=== PATIENT | female | born 1955 | race Caucasian/White ===

== ENCOUNTER 2019-12-25 07:32 | Outpatient (CLI) | payer BC, SELFPAY ==
--- NOTE | 2019-12-25 07:53 | MM_ITS ---
WS: [id number] DIAGNOSTIC BILATERAL DIGITAL MAMMOGRAM WITH CAD LEFT breast ultrasound, limited HISTORY: HX OF BREAST CA, LEFT breast has changed. COMPARISON: 07/17/2018, 04/22/2017, 10/19/2016. TECHNIQUE: Bilateral craniocaudad, mediolateral oblique, and mediolateral views are submitted. Spot c ompression LEFT CC and MLO. Computer aided detection utilized. Breast composition: The breasts are extremely dense, which lowers the sensitivity of mammography. Paulo y dense fibroglandular tissue. No apparent change in the parenchymal pattern over multiple prior year s. Biopsy clip upper outer quadrant of the LEFT breast. Surgical volume loss in the RIGHT breast. Mil d distortion of the soft tissues in the LEFT axilla. This area will be evaluated by ultrasound. There is an area of distortion upper outer quadrant of the LEFT breast which nearly resolves with addition al spot compression views. This area was also seen on 07/12/2015. No interval change. LEFT breast ultrasound. Ultrasound from 2:00 to 3:00 negative for any suspicious masses. Mildly complex cyst with through tra nsmission and the nipple. At 3:00 there is a hypoechoic mass measuring 4 x 4 mm. There is some throug h transmission. Margins are slightly lobulated. MM/[place] [id number] IMPRESSION: BI-RADS: 3-Probably Benign FOLLOW UP: 6 Month Follow-up 1. No discrete abnormality identified in the LEFT breast. As there are several minimally complex cysts and there is very dense fibroglandular tissue is limit ed evaluation short-term follow-up is recommended. Follow-up diagnostic LEFT ma mmogram and ultrasound in 6 months.
--- NOTE | 2019-12-25 08:03 | US_ITS ---
WS: [id number] DIAGNOSTIC BILATERAL DIGITAL MAMMOGRAM WITH CAD LEFT breast ultrasound, limited HISTORY: HX OF BREAST CA, LEFT breast has changed. COMPARISON: 07/17/2018, 04/22/2017, 10/19/2016. TECHNIQUE: Bilateral craniocaudad, mediolateral oblique, and mediolateral views are submitted. Spot c ompression LEFT CC and MLO. Computer aided detection utilized. Breast composition: The breasts are extremely dense, which lowers the sensitivity of mammography. Paulo y dense fibroglandular tissue. No apparent change in the parenchymal pattern over multiple prior year s. Biopsy clip upper outer quadrant of the LEFT breast. Surgical volume loss in the RIGHT breast. Mil d distortion of the soft tissues in the LEFT axilla. This area will be evaluated by ultrasound. There is an area of distortion upper outer quadrant of the LEFT breast which nearly resolves with addition al spot compression views. This area was also seen on 07/12/2015. No interval change. LEFT breast ultrasound. Ultrasound from 2:00 to 3:00 negative for any suspicious masses. Mildly complex cyst with through tra nsmission and the nipple. At 3:00 there is a hypoechoic mass measuring 4 x 4 mm. There is some throug h transmission. Margins are slightly lobulated. US/US breast LT limited* [id number] IMPRESSION: BI-RADS: 3-Probably Benign FOLLOW UP: 6 Month Follow-up 1. No discrete abnormality identified in the LEFT breast. As there are several minimally complex cysts and there is very dense fibroglandular tissue is limit ed evaluation short-term follow-up is recommended. Follow-up diagnostic LEFT ma mmogram and ultrasound in 6 months.
== END 2019-12-25 07:33 | disposition home or self-care (01) ==
LOC: RADSHAW 07:37
PROVIDERS: Family Provider Family Medicine; PCP Family Medicine; Visit Provider Family Medicine
DX: Z85.3 Personal history of malignant neoplasm of breast (principal)
CPT/HCPCS: 76642; 77066

== ENCOUNTER 2020-04-28 22:10 | Inpatient (IN) | payer BC, SELFPAY ==
[2020-04-28] VITALS (17 sets, daily range): BP systolic 101–147; BP diastolic 75–80; PULSE 56–149; RESP 18–27; TEMP 36.9; O2SAT 92–100; BMI 24.7
--- NOTE | 2020-04-28 22:36 | CTR_ITS ---
PROCEDURE INFORMATION: Exam: CT Abdomen And Pelvis With Contrast Exam date and time: 04/28/2020 11:43 PM Age: 64 years old Clinical indication: Abdominal pain; Generalized; Prior surgery; Surgery type: Hysterectomy, breast TECHNIQUE: Imaging protocol: Computed tomography of the abdomen and pelvis with intravenous contrast. Radiation optimization: All CT scans at this facility use at least one of these dose optimization techniques: automated exposure control; mA and/or kV adjustment per patient size (includes targeted exams where dose is matched to clinical indication); or iterative reconstruction. Contrast material: VISI; Contrast volume: 75 ml; Contrast route: 20G; COMPARISON: No relevant prior studies available. RADIATION DOSE METRICS: Total DLP: 676.51 mGy-cm FINDINGS: Lungs: Calcified granuloma the left lung base. Liver: No mass. Gallbladder and bile ducts: No calcified stones. No ductal dilation. Pancreas: Limited evaluation of the pancreas due to motion artifact. Spleen: No splenomegaly. Adrenals: No mass. Kidneys and ureters: Motion limited examination. 2.2 cm simple appearing left renal cyst, no follow up necessary. No hydronephrosis. Stomach and bowel: No obstruction. No mucosal thickening. No dilated bowel loops. Appendix: The appendix is not identified. Intraperitoneal space: No free air. No significant fluid collection. Vasculature: The main portal vein, superior mesenteric vein, and splenic vein appear patent. No aortic aneurysm. Lymph nodes: No enlarged lymph nodes. Bladder: [place] catheter is identified in the bladder. Reproductive: Status post hysterectomy. Bones/joints: Diffuse sclerotic bony lesions.Bones are osteopenic. Chronic appearing L3 vertebral body fracture. Soft tissues: Unremarkable. CT/CT abdomen pelvis w con* [id number] IMPRESSION: 1. Diffuse sclerotic bony lesions, correlate with known history of metastatic disease. 2. No acute intra-abdominal abnormality allowing for motion artifact. COMMENTS: Consistent with the [employer]'s Incidental Findings Committee white paper (J Am Lidia Radiol 2018): Any incidental renal lesion less than 1.0 cm or classified as too small to characterize, or any incidental cystic renal lesion characterized as simple-appearing, is likely benign. No follow-up imaging is recommended for these lesions per consensus recommendations based on imaging criteria. Radiation Dose CTDIVOL = (mGy): DLP = 676.51 (mGy-cm)
--- NOTE | 2020-04-28 22:36 | CTR_ITS ---
PROCEDURE INFORMATION: Exam: CT Head Without Contrast Exam date and time: 04/28/2020 11:48 PM Age: 64 years old Clinical indication: Altered mental status/memory loss; Confusion or disorientation TECHNIQUE: Imaging protocol: Computed tomography of the head without contrast. Radiation optimization: All CT scans at this facility use at least one of these dose optimization techniques: automated exposure control; mA and/or kV adjustment per patient size (includes targeted exams where dose is matched to clinical indication); or iterative reconstruction. COMPARISON: No relevant prior studies available. RADIATION DOSE METRICS: Total DLP: 868.43 mGy-cm FINDINGS: Brain: [place]-white matter differentiation is preserved. No edema, mass effect or midline shift. No acute intracranial hemorrhage.Periventricular and deep white matter hypodensities compatible with chronic microvascular ischemic changes. Ventricles: No ventriculomegaly. Bones/joints: 1.6 x 1.5 cm left skull base mass, see CTA head/neck report follow shortly. No acute fracture. Sinuses: No acute sinusitis. Mastoid air cells: No mastoid effusion. Soft tissues: Unremarkable. CT/CT head wo con* [id number] IMPRESSION: No acute intracranial abnormality. 1.6 x 1.5 cm left skull base mass, see CTA head/neck report follow shortly. Radiation Dose CTDIVOL = (mGy): DLP = 868.43 (mGy-cm)
--- NOTE | 2020-04-28 22:36 | XR_ITS ---
WS: [id number] PORTABLE CHEST HISTORY: Altered mental status COMPARISON: None available. Lungs are clear and well expanded. No pleural effusion or pneumothorax. Cardiac size: Normal. Mediastinum/Aorta: Normal mediastinum. No osseous abnormality seen. XR/XR chest 1V portable [id number] IMPRESSION: Unremarkable portable chest.
--- NOTE | 2020-04-28 22:38 | ECG_ITS ---
Measurements Intervals [place] Rate: 65 P: 41 NM: 142 QRS: 29 QRSD: 76 T: 114 QT: 438 QTc: 457 Atrial fibrillation with controlled medical response rate. Specific T wave changes Electronically Signed On 04-30-2020 14:56:41 CDT by Aaron Pineda M.D. [email or web address]
[2020-04-28] MEDS: sodium chloride 0.9% 1,000 ML 100 ML IV (22:44)
[2020-04-28 22:55] LABS: Arterial Blood Gas Hematocrit 33.7 % (37-47); Blood Gas Sample Site Brachial, right; Blood Gas Sample Type Arterial; HCO3 ABG 24.1 mmol/L (22-26)
[2020-04-28 22:56] LABS: Basophils # 0.1 10^3/uL (0.0-0.1); Basophils % 0.7 %; Eosinophils # 0.1 10^3/uL (0.0-0.8); Eosinophils % 1.3 %; Hematocrit 35.2 % (37.0-47.0); Hemoglobin 11.2 g/dL (11.5-15.3); Lymphocytes # 1.7 10^3/uL (0.8-4.8); Lymphocytes % 23.1 %; Mean Corpuscular HGB Conc 31.8 g/dL (30.0-36.0); Mean Corpuscular Hemoglobin 28.8 pg (28.0-34.0); Mean Corpuscular Volume 90.5 fL (81-99); Mean Platelet Volume 10.1 fL (7.4-10.4); Monocytes # 0.7 10^3/uL (0.2-0.9); Monocytes % 8.9 %; Neutrophils % 65.9 %; Nucleated Red Blood Cells % 0 %; Platelet Count 414 10^3/cmm (130-400); Red Blood Count 3.89 10^6/uL (4.1-5.3); Red Cell Distribution Width 15.4 % (12.1-15.1); White Blood Count 7.5 10^3/uL (4.0-10.0)
[2020-04-28 22:57] LABS: ABG PH Result 7.63 (7.35-7.45)
[2020-04-28 22:58] LABS: Ketone (Acetest) Serum Negative (Negative)
[2020-04-28 23:01] LABS: INR 0.95 (0.8-1.2)
[2020-04-28 23:05] LABS: Lactic Sepsis W/Reflex 1.5 mmol/L (0.5-2.2)
[2020-04-28 23:08] LABS: Troponin(5th) Baseline 8 ng/L (0-10)
[2020-04-28 23:10] LABS: Glucose Point of Care 124 mg/dL (70-110)
--- NOTE | 2020-04-28 23:12 | ED_ITS ---
HPI - Altered Mental Status General: Chief Complaint: Altered Mental Status Stated Complaint: ams Time Seen by Provider: 04/28/20 22:28 Source: family History of Present Illness: HPI narrative: Silva is a 64-year-old female who comes in with a severely altered mental status. All history is obtained from the patient's daughter and from Dr. Pickard by phone. The patient is unable to provide any meaningful information. Family, the Pt.'s daughter in law relates the patient had a cholesterol medication changed approximately 2 weeks ago and since that time the patient has been intermittently confused. She has also been complaining of intermittent headaches and neck pain. She has had no fever, chills, or other complaints other than a headache. Today the patient saw Dr. Pickard in his office and he could not find where a cholesterol medication change had been made but had the patient stop all her medications due to this change in her mental status to see if the medication had caused this and none of the medications were essential at that time. He is unaware of anything else that may have caused the symptoms intermittent confusion. Family states tonight the patient was normally believed between 6 and 630 but then after that she became much more confused especially at 8 PM. Patient is at this time not interacting with her environment and has vomited several times. Review of Systems General: Reports: ROS unobtainable due to mental status PFSH ED PFSH: Medical History Anxiety with depression History of invasive ductal carcinoma of breast Right breast infiltrating ductal carcinoma. 02/2001 Primary tumor 1 cm, lumpectomy, axillary node dissection; ER/NE (+),HER2/iris (-). 2000 chemotherapy, followed by radiation, Tamoxifen ?5 years; Femara until 2007. Hyperlipidemia Hypothyroidism (acquired) Prolapse of vaginal wall with midline cystocele Surgical History H/O breast biopsy H/O dilation and curettage 1969's for persistent spotting. H/O lumpectomy (~02/19/01) --1983 right breast --02/19/2001 Right side; Carcinoma Lymph nodes taken H/O thumb surgery (~2006) Repair of right thumb trigger finger in May and left thumb trigger finger in June 2007. H/O tubal ligation (~11/15/93) H/O vaginal surgery (~08/07/11) preoperative diagnosis was a cystocele-grade 2. On examination under anesthesia there was a 2 x 2 centimeter mass noted in the vaginal cuff and as a result cystocele repair was not done and wide local excision of this vaginal mass was performed by Dr. Santamaria assisted by Dr. Dr. Torrez. -Pathology of this showed granulation tissue. H/O: hysterectomy (~02/22/11) total vaginal hysterectomy with bilateral salpingo-oophorectomy and ut erosacral ligament was distention, cystoscopy done for uterovaginal prolapse and cystocele. Surgery was performed by Dr. Santamaria and Dr. Dr. Torrez. Once vault suspension was performed cystocele was reduced and no cystocele repair was done. Pathology was benign with atrophic ovaries. Family History Father Heart disease Diabetes Hyperlipidemia Hypertension Family/Other Heart disease Paternal aunt x2 Paternal uncle x 1 Grandfather Heart disease Paternal grandfather Mother Hyperlipidemia Family history of thyroid problem Stroke Grandmother Cancer, Onset Age: 80 MGM- BREAST CA Social History Smoking and tobacco status: never smoked Alcohol intake: never Substance/Drug Use: never Household members: family Housing: House Physical Exam Const: EXAM LIMITATIONS: altered mental status GENERAL APPEARANCE: in distress, lethargic and ill appearing ORIENTATION/CONSCIOUSNESS: Yes lethargic HENMT: COMMON NORMALS: normocephalic, atraumatic, EAC's normal and Normal external nose present HEAD & SCALP: normocephalic and atraumatic FACE & SINUS: normal facial exam NOSE: Normal external nose present and Normal nares present EXTERNAL AUDITORY CANAL: EAC's normal MOUTH: Normal oral and palatal mucosa present Eye: COMMON NORMALS: Equal, round and reactive pupils present, EOMs intact bilaterally and conjunctivae normal CONJUNCTIVA: Yes conjunctivae normal PUPIL: Yes Equal, round and reactive pupils present Neck/C-Spine: COMMON NORMALS: full ROM, no lymphadenopathy, no meningeal signs and no JVD Lymph: LYMPHATIC: no lymphadenopathy noted and no lymphedema noted Chest: COMMONS NORMALS: normal inspection of the chest and normal palpation of entire chest wall Resp: COMMON NORMALS: clear to auscultation bilaterally EFFORT & INSPECTION: Yes labored and Yes grunting AUSCULTATION: clear to auscultation bilaterally, no rales, no rhonchi and no wheezes Cardio: COMMON NORMALS: no JVD, regular rate, regular rhythm, S1 normal heart sound present and S2 normal heart sound present RATE: regular rate RHYTHM: regular rhythm HEART SOUNDS: S1 normal heart sound present and S2 normal heart sound present GI: COMMON NORMALS: Soft to palpation, non-tender, No hepatosplenomegaly present and no masses PALPATION: Yes Soft to palpation, No Tenderness to palpation present (GI) (mild diffusly) and Yes No hepatosplenomegaly present Back/Pelvis: COMMON NORMALS: thoracic and lumbar spine normal to inspection Extremity: COMMON NORMALS: normal to inspection, full ROM, capillary refill normal, no joint enlargement, no clubbing, cyanosis or edema, no calf tenderness and no pedal edema Neuro: MITZI COMA SCALE: document GCS findings [place] coma scale eye opening: Spontaneous Mitzi coma scale verbal response: Sounds Mitzi coma scale motor response: Localising Mitzi coma scale total score: 11 SENSORIUM/ORIENTATION: Yes lethargic MENINGEAL SIGNS: Yes no meningeal signs, No nuccal rigidity, No Brudzinski's sign present and No Kernig's sign presnet MOTOR EXAM: no tremor noted, Motor fasciculations not present, Normal motor muscle tone present throughout and Motor abnormalities not present Course Vital Signs: Vital signs: Vital Signs Temperature 98.5 F 04/28/20 22:17 Pulse Rate 95 04/28/20 23:30 Respiratory Rate 16 04/29/20 05:10 Blood Pressure 142/82 04/29/20 06:00 Pulse Oximetry 99 04/29/20 06:00 MDM - Altered Mental Status MDM Narrative: Medical decision making narrative: Mrs. Aj is a 64-year-old female who comes in with headache and neck pain for approximately 2 weeks but then abrupt onset mental status change today. There was felt initially that her symptoms were likely due to change in medication at least as far as her intermittent confusion. The patient did not present in a window minimal to TPA. An NIH stroke scale was almost impossible secondary to her significant confusion. The patient was very difficult to evaluate secondary to her encephalopathy. Ultimately after proceeding cautiously with sedation as we did not want to obtunded her or cause a airway or ventilation issue we were able to get a CT scan after 3 mg of Ativan and 5 mg of Haldol. It was on the second attempt we were able to get the scans performed. Please see the results of all the scans but I did discuss these with the radiologist who did state there was no evidence of brain parenchymal disease but diffuse osseous disease. I reviewed the case in full with Drs. Galeana and Suraj. They agree with the idea of giving Decadron 10 mg empirically and then 4 mg every 6 hours for 24 hours. 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 When discussed with the hospitalist Dr. Ortiz he stated he would initiate this therapy on her admission orders. Patient had no fever or white count but we did elect to empirically cover her for meningitis. Dr. Stockton resume these orders on the floor but I initiated doses here in the ER. I did run this past neurology who felt this was the safe and appropriate way. We did discuss possibly performing the LP done here but as the patient was so encephalopathic and could not cooperate or be redirected it was not felt to be safe to be done down here in the ER without the addition of anesthesia. Dr. Ortiz felt it would be safer to have interventional radiology perform the LP later today with anesthesia available as needed for sedation. Family was made aware of the patient's condition and findings tonight they are going to discuss together this morning how they would like to proceed from here. Dr. Galeana was made aware and he does agree with this treatment course. Further care will be dictated on the inpa ient side. Lab Data: Attestation: I reviewed the patient's lab results. Labs: Lab Results 04/28/20 04/28/20 04/28/20 Range/Units 22:25 22:25 22:25 WBC 7.5 (4.0-10.0) 10^3/ uL RBC 3.89 L (4.1-5.3) 10^6/u L Hgb 11.2 L (11.5-15.3) g/dL Hct 35.2 L (37.0-47.0) % MCV 90.5 (81-99) fL MCH 28.8 (28.0-34.0) pg MCHC 31.8 (30.0-36.0) g/dL RDW 15.4 H (12.1-15.1) % Plt Count 414 H (130-400) 10^3/c mm MPV 10.1 (7.4-10.4) fL Neut % (Auto) 65.9 % Lymph % (Auto) 23.1 % [place] % (Auto) 8.9 % Eos % (Auto) 1.3 % Baso % (Auto) 0.7 % Neut # (Auto) 5.0 (1.8-7.7) 10^3/u L Lymph # (Auto) 1.7 (0.8-4.8) 10^3/u L [place] # (Auto) 0.7 (0.2-0.9) 10^3/u L Eos # (Auto) 0.1 (0.0-0.8) 10^3/u L Baso # (Auto) 0.1 (0.0-0.1) 10^3/u L Nucleated RBC % (a uto) 0 % Nucleated RBCs # 0.0 /100WBC PT 13.00 (10.5-13.3) SECO NDS INR 0.95 (0.8-1.2) Specimen Type Sample Site ABG pH (7.35-7.45) ABG pCO2 (35-45) mmHg ABG pO2 (80.0-100.0) mmH g ABG HCO3 (22-26) mmol/L ABG Base Excess (-2.0-2.0) mmol/ L Fan Test Hematocrit (37-47) % O2 Delivery Device FiO2 % [employer] ID Sodium 142 (136-145) mmol/L Potassium 3.8 (3.5-5.1) mmol/L Chloride 103 (98-107) mmol/L Carbon Dioxide 25 (22-29) mmol/L Anion Gap 17.8 (5-19) BUN 10 (8-23) mg/dL Creatinine 0.5 (0.5-0.9) mg/dL GFR Calculation 124.2 (90-130) mL/min Glucose 127 H (65-115) mg/dL POC Glucose (70-110) mg/dL Calculated Osmolal ity 292 (285-295) mOsm/k g Lactic Acid (0.5-2.2) mmol/L Calcium 10.3 (8.5-10.5) mg/dL Magnesium 2.2 (1.7-2.3) mg/dL Total Bilirubin 0.3 (0.15-1.2) mg/dL AST 29 (0-32) U/L ALT 16 (0-33) U/L Alkaline Phosphata se 77 (35-105) IU/L Creatine Kinase 58 (26-192) U/L Troponin I 6 Hour (0-10) ng/L Troponin I Hi Sens Del (0-12) ng/L Troponin T Baselin e (0-10) ng/L Troponin T 120 Min [place] (0-10) ng/L Delta Troponin T (0-10) ABS# Total Protein 6.5 L (6.6-8.7) g/dL Albumin 4.4 (3.5-5.2) g/dL Globulin 2.1 (1.3-4.6) g/dL Lipase 67 H (13-60) U/L TSH 2.51 (0.27-4.20) uIU/ mL Urine Color (Yellow) Urine Appearance (CLEAR) Urine pH (5-7) Ur Specific Gravit y (1.005-1.030) Urine Protein (Negative) Urine Glucose (UA) (Normal) Urine Ketones (Negative) Urine Blood (Negative) Urine Nitrate (Negative) Urine Bilirubin (NEGATIVE) Prot Sulfosalicyli c Acd (Negative) Urine Urobilinogen (Negative) mg/dL Ur Leukocyte Randa ase (Negative) Urine RBC (0-2) /hpf Urine WBC (0-5) /hpf Ur Squamous Epith Cells (0-5) Urine Bacteria (NONE) Urine Opiates Scre en (Negative) ng/mL Ur Barbiturates Sc reen (Negative) ng/mL Ur Phencyclidine S crn (Negative) ng/mL Ur Amphetamines Sc reen (Negative) ng/mL U Benzodiazepines Scrn (Negative) ng/mL Urine Cocaine Scre en (Negative) ng/mL U Marijuana (THC) Screen (Negative) ng/mL Ethyl Alcohol < 10 (0-10) mg/dL Serum Ketones (Negative) 04/28/20 04/28/20 04/28/20 Range/Units 22:25 22:25 22:25 WBC (4.0-10.0) 10^3/ uL RBC (4.1-5.3) 10^6/u L Hgb (11.5-15.3) g/dL Hct (37.0-47.0) % MCV (81-99) fL MCH (28.0-34.0) pg MCHC (30.0-36.0) g/dL RDW (12.1-15.1) % Plt Count (130-400) 10^3/c mm MPV (7.4-10.4) fL Neut % (Auto) % Lymph % (Auto) % [place] % (Auto) % Eos % (Auto) % Baso % (Auto) % Neut # (Auto) (1.8-7.7) 10^3/u L Lymph # (Auto) (0.8-4.8) 10^3/u L [place] # (Auto) (0.2-0.9) 10^3/u L Eos # (Auto) (0.0-0.8) 10^3/u L Baso # (Auto) (0.0-0.1) 10^3/u L Nucleated RBC % (a uto) % Nucleated RBCs # /100WBC PT (10.5-13.3) SECO NDS INR (0.8-1.2) Specimen Type Sample Site ABG pH (7.35-7.45) ABG pCO2 (35-45) mmHg ABG pO2 (80.0-100.0) mmH g ABG HCO3 (22-26) mmol/L ABG Base Excess (-2.0-2.0) mmol/ L Fan Test Hematocrit (37-47) % O2 Delivery Device FiO2 % [employer] ID Sodium (136-145) mmol/L Potassium (3.5-5.1) mmol/L Chloride (98-107) mmol/L Carbon Dioxide (22-29) mmol/L Anion Gap (5-19) BUN (8-23) mg/dL Creatinine (0.5-0.9) mg/dL GFR Calculation (90-130) mL/min Glucose (65-115) mg/dL POC Glucose (70-110) mg/dL Calculated Osmolal ity (285-295) mOsm/k g Lactic Acid 1.5 (0.5-2.2) mmol/L Calcium (8.5-10.5) mg/dL Magnesium (1.7-2.3) mg/dL Total Bilirubin (0.15-1.2) mg/dL AST (0-32) U/L ALT (0-33) U/L Alkaline Phosphata se (35-105) IU/L Creatine Kinase (26-192) U/L Troponin I 6 Hour (0-10) ng/L Troponin I Hi Sens Del (0-12) ng/L Troponin T Baselin e 8 (0-10) ng/L Troponin T 120 Min [place] (0-10) ng/L Delta Troponin T (0-10) ABS# Total Protein (6.6-8.7) g/dL Albumin (3.5-5.2) g/dL Globulin (1.3-4.6) g/dL Lipase (13-60) U/L TSH (0.27-4.20) uIU/ mL Urine Color (Yellow) Urine Appearance (CLEAR) Urine pH (5-7) Ur Specific Gravit y (1.005-1.030) Urine Protein (Negative) Urine Glucose (UA) (Normal) Urine Ketones (Negative) Urine Blood (Negative) Urine Nitrate (Negative) Urine Bilirubin (NEGATIVE) Prot Sulfosalicyli c Acd (Negative) Urine Urobilinogen (Negative) mg/dL Ur Leukocyte Randa ase (Negative) Urine RBC (0-2) /hpf Urine WBC (0-5) /hpf Ur Squamous Epith Cells (0-5) Urine Bacteria (NONE) Urine Opiates Scre en (Negative) ng/mL Ur Barbiturates Sc reen (Negative) ng/mL Ur Phencyclidine S crn (Negative) ng/mL Ur Amphetamines Sc reen (Negative) ng/mL U Benzodiazepines Scrn (Negative) ng/mL Urine Cocaine Scre en (Negative) ng/mL U Marijuana (THC) Screen (Negative) ng/mL Ethyl Alcohol (0-10) mg/dL Serum Ketones Negative (Negative) 04/28/20 04/28/20 04/28/20 Range/Units 22:40 22:40 22:50 WBC (4.0-10.0) 10^3/ uL RBC (4.1-5.3) 10^6/u L Hgb (11.5-15.3) g/dL Hct (37.0-47.0) % MCV (81-99) fL MCH (28.0-34.0) pg MCHC (30.0-36.0) g/dL RDW (12.1-15.1) % Plt Count (130-400) 10^3/c mm MPV (7.4-10.4) fL Neut % (Auto) % Lymph % (Auto) % [place] % (Auto) % Eos % (Auto) % Baso % (Auto) % Neut # (Auto) (1.8-7.7) 10^3/u L Lymph # (Auto) (0.8-4.8) 10^3/u L [place] # (Auto) (0.2-0.9) 10^3/u L Eos # (Auto) (0.0-0.8) 10^3/u L Baso # (Auto) (0.0-0.1) 10^3/u L Nucleated RBC % (a uto) % Nucleated RBCs # /100WBC PT (10.5-13.3) SECO NDS INR (0.8-1.2) Specimen Type Arterial Sample Site Brachial, right ABG pH 7.63 H* (7.35-7.45) ABG pCO2 23.0 L (35-45) mmHg ABG pO2 103.0 H (80.0-100.0) mmH g ABG HCO3 24.1 (22-26) mmol/L ABG Base Excess 4.0 H (-2.0-2.0) mmol/ L Fan Test N/a Hematocrit 33.7 L (37-47) % O2 Delivery Device None FiO2 21.0 % [employer] ID [email or web address] Sodium (136-145) mmol/L Potassium (3.5-5.1) mmol/L Chloride (98-107) mmol/L Carbon Dioxide (22-29) mmol/L Anion Gap (5-19) BUN (8-23) mg/dL Creatinine (0.5-0.9) mg/dL GFR Calculation (90-130) mL/min Glucose (65-115) mg/dL POC Glucose (70-110) mg/dL Calculated Osmolal ity (285-295) mOsm/k g Lactic Acid (0.5-2.2) mmol/L Calcium (8.5-10.5) mg/dL Magnesium (1.7-2.3) mg/dL Total Bilirubin (0.15-1.2) mg/dL AST (0-32) U/L ALT (0-33) U/L Alkaline Phosphata se (35-105) IU/L Creatine Kinase (26-192) U/L Troponin I 6 Hour (0-10) ng/L Troponin I Hi Sens Del (0-12) ng/L Troponin T Baselin e (0-10) ng/L Troponin T 120 Min [place] (0-10) ng/L Delta Troponin T (0-10) ABS# Total Protein (6.6-8.7) g/dL Albumin (3.5-5.2) g/dL Globulin (1.3-4.6) g/dL Lipase (13-60) U/L TSH (0.27-4.20) uIU/ mL Urine Color Yellow (Yellow) Urine Appearance Clear (CLEAR) Urine pH 8 H (5-7) Ur Specific Gravit y 1.010 (1.005-1.030) Urine Protein Neg (Negative) Urine Glucose (UA) Norm (Normal) Urine Ketones Negative (Negative) Urine Blood Neg (Negative) Urine Nitrate Negative (Negative) Urine Bilirubin Neg (NEGATIVE) Prot Sulfosalicyli c Acd Negative (Negative) Urine Urobilinogen Norm (Negative) mg/dL Ur Leukocyte Randa ase Negative (Negative) Urine RBC Rare (0-2) /hpf Urine WBC Rare (0-5) /hpf Ur Squamous Epith Cells Rare (0-5) Urine Bacteria Trace (NONE) Urine Opiates Scre en Negative (Negative) ng/mL Ur Barbiturates Sc reen Negative (Negative) ng/mL Ur Phencyclidine S crn Negative (Negative) ng/mL Ur Amphetamines Sc reen Negative (Negative) ng/mL U Benzodiazepines Scrn Negative (Negative) ng/mL Urine Cocaine Scre en Negative (Negative) ng/mL U Marijuana (THC) Screen Negative (Negative) ng/mL Ethyl Alcohol (0-10) mg/dL Serum Ketones (Negative) 04/28/20 04/29/20 04/29/20 Range/Units 23:07 00:45 04:15 WBC (4.0-10.0) 10^3/ uL RBC (4.1-5.3) 10^6/u L Hgb (11.5-15.3) g/dL Hct (37.0-47.0) % MCV (81-99) fL MCH (28.0-34.0) pg MCHC (30.0-36.0) g/dL RDW (12.1-15.1) % Plt Count (130-400) 10^3/c mm MPV (7.4-10.4) fL Neut % (Auto) % Lymph % (Auto) % [place] % (Auto) % Eos % (Auto) % Baso % (Auto) % Neut # (Auto) (1.8-7.7) 10^3/u L Lymph # (Auto) (0.8-4.8) 10^3/u L [place] # (Auto) (0.2-0.9) 10^3/u L Eos # (Auto) (0.0-0.8) 10^3/u L Baso # (Auto) (0.0-0.1) 10^3/u L Nucleated RBC % (a uto) % Nucleated RBCs # /100WBC PT (10.5-13.3) SECO NDS INR (0.8-1.2) Specimen Type Sample Site ABG pH (7.35-7.45) ABG pCO2 (35-45) mmHg ABG pO2 (80.0-100.0) mmH g ABG HCO3 (22-26) mmol/L ABG Base Excess (-2.0-2.0) mmol/ L Fan Test Hematocrit (37-47) % O2 Delivery Device FiO2 % [employer] ID Sodium (136-145) mmol/L Potassium (3.5-5.1) mmol/L Chloride (98-107) mmol/L Carbon Dioxide (22-29) mmol/L Anion Gap (5-19) BUN (8-23) mg/dL Creatinine (0.5-0.9) mg/dL GFR Calculation (90-130) mL/min Glucose (65-115) mg/dL POC Glucose 124 (70-110) mg/dL Calculated Osmolal ity (285-295) mOsm/k g Lactic Acid (0.5-2.2) mmol/L Calcium (8.5-10.5) mg/dL Magnesium (1.7-2.3) mg/dL Total Bilirubin (0.15-1.2) mg/dL AST (0-32) U/L ALT (0-33) U/L Alkaline Phosphata se (35-105) IU/L Creatine Kinase (26-192) U/L Troponin I 6 Hour 11.63 H (0-10) ng/L Troponin I Hi Sens Del 3.63 (0-12) ng/L Troponin T Baselin e (0-10) ng/L Troponin T 120 Min [place] 8.23 (0-10) ng/L Delta Troponin T 0.23 (0-10) ABS# Total Protein (6.6-8.7) g/dL Albumin (3.5-5.2) g/dL Globulin (1.3-4.6) g/dL Lipase (13-60) U/L TSH (0.27-4.20) uIU/ mL Urine Color (Yellow) Urine Appearance (CLEAR) Urine pH (5-7) Ur Specific Gravit y (1.005-1.030) Urine Protein (Negative) Urine Glucose (UA) (Normal) Urine Ketones (Negative) Urine Blood (Negative) Urine Nitrate (Negative) Urine Bilirubin (NEGATIVE) Prot Sulfosalicyli c Acd (Negative) Urine Urobilinogen (Negative) mg/dL Ur Leukocyte Randa ase (Negative) Urine RBC (0-2) /hpf Urine WBC (0-5) /hpf Ur Squamous Epith Cells (0-5) Urine Bacteria (NONE) Urine Opiates Scre en (Negative) ng/mL Ur Barbiturates Sc reen (Negative) ng/mL Ur Phencyclidine S crn (Negative) ng/mL Ur Amphetamines Sc reen (Negative) ng/mL U Benzodiazepines Scrn (Negative) ng/mL Urine Cocaine Scre en (Negative) ng/mL U Marijuana (THC) Screen (Negative) ng/mL Ethyl Alcohol (0-10) mg/dL Serum Ketones (Negative) Imaging Data^: CT Head: Radiologist's impression: [address] [address] [address] Scan Report Signed Patient: Silva Aj Unit #: [id number] : 1955 Age/Sex: 64 / F ADM Date: 10/07 Loc: ER Room/Bed: Attending Dr: Ordering Provider/Ordering MD: Elvia Farr DO Date of Service: 04/28/20 Procedure(s): CT head wo con* [id number] Accession Number(s): [id number] Report Number: [id number] PROCEDURE INFORMATION: Exam: CT Head Without Contrast Exam date and time: 04/28/2020 11:48 PM Age: 64 years old Clinical indication: Altered mental status/memory loss; Confusion or disorientation TECHNIQUE: Imaging protocol: Computed tomography of the head without contrast. Radiation optimization: All CT scans at this facility use at least one of these dose optimization techniques: automated exposure control; mA and/or kV adjustment per patient size (includes targeted exams where dose is matched to clinical indication); or iterative reconstruction. COMPARISON: No relevant prior studies available. RADIATION DOSE METRICS: Total DLP: 868.43 mGy-cm FINDINGS: Brain: [place]-white matter differentiation is preserved. No edema, mass effect or midline shift. No acute intracranial hemorrhage.Periventricular and deep white matter hypodensities compatible with chronic microvascular ischemic changes. Ventricles: No ventriculomegaly. Bones/joints: 1.6 x 1.5 cm left skull base mass, see CTA head/neck report follow shortly. No acute fracture. Sinuses: No acute sinusitis. Mastoid air cells: No mastoid effusion. Soft tissues: Unremarkable. CT/CT head wo con* [id number] IMPRESSION: No acute intracranial abnormality. 1.6 x 1.5 cm left skull base mass, see CTA head/neck report follow shortly. Radiation Dose CTDIVOL = (mGy): DLP = 868.43 (mGy-cm) Dictated By: Harpreet Fernandez MD Signed By: Harpreet Fernandez MD Signed Date/Time: 04/29/20326 DD/ 4 CT Abd/Pel: Radiologist's impression: [address] [address] [address] Scan Report Signed Patient: Silva Aj Unit #: [id number] : 1955 Age/Sex: 64 / F ADM Date: 04/28/20 Loc: ER Room/Bed: Attending Dr: Ordering Provider/Ordering MD: Elvia Farr DO Date of Service: 04/28/20 Procedure(s): CT abdomen pelvis w con* [id number] Accession Number(s): [id number] Report Number: [id number] PROCEDURE INFORMATION: Exam: CT Abdomen And Pelvis With Contrast Exam date and time: 04/28/2020 11:43 PM Age: 64 years old Clinical indication: Abdominal pain; Generalized; Prior surgery; Surgery type: Hysterectomy, breast TECHNIQUE: Imaging protocol: Computed tomography of the abdomen and pelvis with intravenous contrast. Radiation optimization: All CT scans at this facility use at least one of these dose optimization techniques: automated exposure control; mA and/or kV adjustment per patient size (includes targeted exams where dose is matched to clinical indication); or iterative reconstruction. Contrast material: VISI; Contrast volume: 75 ml; Contrast route: 20G; COMPARISON: No relevant prior studies available. RADIATION DOSE METRICS: Total DLP: 676.51 mGy-cm FINDINGS: Lungs: Calcified granuloma the left lung base. Liver: No mass. Gallbladder and bile ducts: No calcified stones. No ductal dilation. Pancreas: Limited evaluation of the pancreas due to motion artifact. Spleen: No splenomegaly. Adrenals: No mass. Kidneys and ureters: Motion limited examination. 2.2 cm simple appearing left renal cyst, no follow up necessary. No hydronephrosis. Stomach and bowel: No obstruction. No mucosal thickening. No dilated bowel loops. Appendix: The appendix is not identified. Intraperitoneal space: No free air. No significant fluid collection. Vasculature: The main portal vein, superior mesenteric vein, and splenic vein appear patent. No aortic aneurysm. Lymph nodes: No enlarged lymph nodes. Bladder: [place]o catheter is identified in the bladder. Reproductive: Status post hysterectomy. Bones/joints: Diffuse sclerotic bony lesions.Bones are osteopenic. Chronic appearing L3 vertebral body fracture. Soft tissues: Unremarkable. CT/CT abdomen pelvis w con* [id number] IMPRESSION: 1. Diffuse sclerotic bony lesions, correlate with known history of metastatic disease. 2. No acute intra-abdominal abnormality allowing for motion artifact. COMMENTS: Consistent with the [employer]'s Incidental Findings Committee white paper (J Am Lidia Radiol 2018): Any incidental renal lesion less than 1.0 cm or classified as too small to characterize, or any incidental cystic renal lesion characterized as simple-appearing, is likely benign. No follow-up imaging is recommended for these lesions per consensus recommendations based on imaging criteria. Radiation Dose CTDIVOL = (mGy): DLP = 676.51 (mGy-cm) Dictated By: Harpreet Fernandez MD Signed By: Harpreet Fernandez MD Signed Date/Time: 04/29/20341 DD/ 0 CT Cervical Spine: Radiologist's impression: [address] [address] [address] Scan Report Signed Patient: Silva Aj Unit #: [id number] : 1955 Age/Sex: 64 / F ADM Date: 04/18 12/07 Loc: ER Room/Bed: Attending Dr: Ordering Provider/Ordering MD: Elvia Farr DO Date of Service: 04/29/20 Procedure(s): CT cervical spin wo con* [id number] Accession Number(s): [id number] Report Number: [id number] PROCEDURE INFORMATION: Exam: CT Cervical Spine Without Contrast Exam date and time: 04/29/2020 12:20 AM Age: 64 years old Clinical indication: Neck pain TECHNIQUE: Imaging protocol: Computed tomography images of the cervical spine without contrast. Radiation optimization: All CT scans at this facility use at least one of these dose optimization techniques: automated exposure control; mA and/or kV adjustment per patient size (includes targeted exams where dose is matched to clinical indication); or iterative reconstruction. COMPARISON: No relevant prior studies available. RADIATION DOSE METRICS: Total DLP: 812.48 mGy-cm FINDINGS: Vertebrae: Examination is limited by motion artifact. Otherwise no acute cervical fracture. Multiple sclerotic lesions noted in several vertebral bodies, correlate with known history of malignancy. Straightening of the normal cervical lordosis which can be seen with spasm. Discs/Spinal canal/Neural foramina: Multilevel degenerative changes including disc space narrowing, endplate spurring and facet hypertrophy. Mild anterolisthesis of C4 on 5 probably degenerative in etiology. Soft tissues: Unremarkable. Lungs: No pneumothorax. CT/CT cervical spin wo con* [id number] IMPRESSION: No acute cervical fracture. Multiple sclerotic lesions noted in several vertebral bodies, correlate with known history of malignancy. Radiation Dose CTDIVOL = (mGy): DLP = 812.48 (mGy-cm) Dictated By: Harpreet Fernandez MD Signed By: Harpreet Fernandez MD Signed Date/Time: 04/29/20329 DD/ 7 CTA Head Neck: Radiologist's impression: [address] [place] [address] CT Scan Report Signed Patient: Silva Aj Unit #: [id number] : 1955 Age/Sex: 64 / F ADM Date: 04/28/20 Loc: ER Room/Bed: Attending Dr: Ordering Provider/Ordering MD: Elvia Farr DO Date of Service: 04/29/20 Procedure(s): CT angio headneck* [id number] Accession Number(s): [id number] Report Number: [id number] PROCEDURE INFORMATION: Exam: CT Angiography Head With Contrast Exam date and time: 04/29/2020 12:20 AM Age: 64 years old Clinical indication: Headache; Additional info: AMS TECHNIQUE: Imaging protocol: Computed tomography angiography of the head with intravenous contrast. 3D rendering: MIP and/or 3D reconstructed images were created by the technologist. Radiation optimization: All CT scans at this facility use at least one of these dose optimization techniques: automated exposure control; mA and/or kV adjustment per patient size (includes targeted exams where dose is matched to clinical indication); or iterative reconstruction. Contrast material: VISI; Contrast volume: 95 ml; Contrast route: 20G; COMPARISON: CT head wo con* [id number] 04/29/2020 2:36 AM RADIATION DOSE METRICS: Total DLP: 1847.86 mGy-cm FINDINGS: Anterior cerebral arteries: No occlusion or significant stenosis. No aneurysm. Right internal carotid artery: Calcification of cavernous right internal carotid artery. Right middle cerebral artery: No occlusion or significant stenosis. No aneurysm. Right posterior cerebral artery: Variant supply of right posterior cerebral artery. Right vertebral artery: No occlusion or significant stenosis. No aneurysm. Left internal carotid artery: Slight effacement and minor narrowing of the left internal carotid artery at the level of skull base mass. Left middle cerebral artery: No occlusion or significant stenosis. No aneurysm. Left posterior cerebral artery: No occlusion or significant stenosis. No aneurysm. Left vertebral artery: No occlusion or significant stenosis. No aneurysm. Basilar artery: No occlusion or significant stenosis. No aneurysm. HEAD: Brain: Expansion of cerebrospinal fluid space within the lower aspect of the posterior fossa within the midline. Atrophic appearance of the cerebellum. Ventricles: Mild ventricular enlargement. Bones/joints: Destructive lytic skull base mass near the midline and positioned predominantly left of midline situated at the upper level of the clivus and adjacent sphenoid bone. Overall soft tissue area of involvement measures 1.7 x 1.7 by 2.4 cm. Partial destruction of the adjacent petrous portion of the sphenoid bone. The lateral soft tissue margin extends to the margin of the left carotid artery at the level of the carotid canal. Overall abnormal heterogeneous appearance of bone density throughout the calvarium with small intermixed areas of lucency and possible small areas of sclerosis. Sinuses: Minor mucosal thickening of ethmoid sinuses. Soft tissues: Skull base soft tissue mass partially extends at the posterior margin of sphenoid sinus on the left. IMPRESSION: 1. Destructive skull base mass as described. 2. Overall diffuse calvarial bone heterogeneity with possibly mixed lucent or small sclerotic changes worrisome for diffuse osseous neoplastic process. 3. Mild effacement of the medial aspect of left internal carotid artery at the carotid canal with slight narrowing. 4. Variant supply of right posterior cerebral artery. PROCEDURE INFORMATION: Exam: CT Angiography Neck With Contrast Exam date and time: 04/29/2020 12:20 AM Age: 64 years old Clinical indication: Headache; Additional info: AMS TECHNIQUE: Imaging protocol: Computed tomography angiography of the neck with intravenous contrast. 3D rendering: MIP and/or 3D reconstructed images were created by the technologist. Radiation optimization: All CT scans at this facility use at least one of these dose optimization techniques: automated exposure control; mA and/or kV adjustment per patient size (includes targeted exams where dose is matched to clinical indication); or iterative reconstruction. Contrast material: VISI; Contrast volume: 95 ml; Contrast route: 20G; COMPARISON: CT head wo con* [id number] 04/29/2020 2:36 AM RADIATION DOSE METRICS: Total DLP: 1847.86 mGy-cm FINDINGS: Right common carotid artery: No stenosis. No dissection or occlusion. Right internal carotid artery: No stenosis of the extracranial segment. No dissection or occlusion. Right external carotid artery: No occlusion or stenosis of the origin. Right vertebral artery: No stenosis. No dissection or occlusion. Left common carotid artery: No stenosis. No dissection or occlusion. Left internal carotid artery: No stenosis of the extracranial segment. No dissection or occlusion. Left external carotid artery: No occlusion or stenosis of the origin. Left vertebral artery: No stenosis. No dissection or occlusion. Aorta: Calcified thoracic aorta. Bones/joints: Abnormal bone mineral density pattern of the visualized osseous structures of the spine with overall diminutive bone mineral density with small suspicious areas of abnormal sclerosis concerning for diffuse osseous metastatic process. Other consideration could include primary bone neoplasm. Abnormal marrow space involving the visualized axial skeletal structures. Degenerative change of the spine. Anterior subluxation C3 on C4 and anterior subluxation C4 on C5. Soft tissues: Normal. No significant soft tissue swelling. Lymph nodes: Mediastinal calcified granulomatous lymph nodes. Lungs: Interstitial thickening within the lungs. More focal right apical pleural thickening. CT/CT angio headneck* [id number] IMPRESSION: 1. No evidence of vessel stenosis or occlusion. 2. Diffuse abnormal bone density with numerous small sclerotic foci . Additionally overall diminutive bone mineral density and in combination with lucent destructive process at the skull base findings could reflect mixed lucent and sclerotic metastases or primary bone neoplasm. 3. Irregular right apical pleural thickening. This may be due to pleural scarring. Early sessile neoplasm could not be entirely excluded. REFERENCES: NASCET CRITERIA. The degree of internal carotid artery stenosis is based on NASCET criteria. Normal is no stenosis. Mild is less than 50% stenosis. Moderate is 50-69% stenosis. Severe is 70% to 99% stenosis. Total occlusion is no detectable patent lumen. Radiation Dose CTDIVOL = (mGy): DLP = 1847.86 1847.86 (mGy-cm) Dictated By: Jayne Colin DO Signed By: Jayne Colin DO Signed Date/Time: 04/29/20356 DD/ 4 CXR: My impression: No acute cardiopulmonary findings. EKG Data^: EKG 1: Attestation: I personally reviewed and interpreted this EKG as follows: EKG interpretation date: 04/29/20 EKG interpretation time: 23:09 Interpretation: Normal sinus rhythm at 65 beats a minute, PACs, nonspecific ST and T wave changes. 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
[2020-04-28 23:17] LABS: Alanine Aminotransferase 16 U/L (0-33); Albumin Level 4.4 g/dL (3.5-5.2); Alkaline Phosphatase 77 IU/L (35-105); Anion Gap 17.8 (5-19); Aspartate Amino Transferase 29 U/L (0-32); Blood Urea Nitrogen 10 mg/dL (8-23); Calcium 10.3 mg/dL (8.5-10.5); Carbon Dioxide 25 mmol/L (22-29); Chloride 103 mmol/L (98-107); Creatine Phosphokinase 58 U/L (26-192); Globulin 2.1 g/dL (1.3-4.6); Glomerular Filtration Rate 124.2 mL/min (90-130); Glucose 127 mg/dL (65-115); Lipase 67 U/L (13-60); Magnesium 2.2 mg/dL (1.7-2.3); Osmolality Calculated 292 mOsm/kg (285-295); Potassium 3.8 mmol/L (3.5-5.1); Sodium 142 mmol/L (136-145); Thyroid Stimulating Hormone 2.51 uIU/mL (0.27-4.20); Total Bilirubin 0.3 mg/dL (0.15-1.2); Total Protein 6.5 g/dL (6.6-8.7)
[2020-04-28 23:19] LABS: Alcohol Level < 10 mg/dL (0-10)
[2020-04-28] MEDS: ondansetron 2 mg/ML SDV 2 mL 4 MG IVP (23:37)
[2020-04-28] MEDS: LORazepam 2 mg/mL INJ 1 mL 1 MG IVP (23:38)
[2020-04-29] VITALS (85 sets, daily range): BP systolic 83–147; BP diastolic 51–116; PULSE 74–131; RESP 11–27; TEMP 36.6; O2SAT 77–100
[2020-04-29 00:04] LABS: Bacteria Urine TRACE; Bilirubin Urine Neg (NEGATIVE); Blood Urine Neg (Negative); Glucose Urine UA Norm (Normal); Ketones Urine Negative (Negative); Leukocyte Esterase Urine Negative (Negative); Nitrate Urine Negative (Negative); Protein Urine Neg (Negative); RBC Urine RARE /hpf (0-2); Squamous Epithelial Cell Urine RARE (0-5); Sulfosalicylic Acid Urine Negative (Negative); Urine Appearance Clear (CLEAR); Urine Color Yellow (Yellow); Urobilinogen Urine Norm (Negative); WBC Urine RARE /hpf (0-5); pH Urine 8 (5-7)
[2020-04-29] MEDS: LORazepam 2 mg/mL INJ 1 mL IVP (00:06)
--- NOTE | 2020-04-29 00:06 | CTR_ITS ---
PROCEDURE INFORMATION: Exam: CT Cervical Spine Without Contrast Exam date and time: 04/29/2020 12:20 AM Age: 64 years old Clinical indication: Neck pain TECHNIQUE: Imaging protocol: Computed tomography images of the cervical spine without contrast. Radiation optimization: All CT scans at this facility use at least one of these dose optimization techniques: automated exposure control; mA and/or kV adjustment per patient size (includes targeted exams where dose is matched to clinical indication); or iterative reconstruction. COMPARISON: No relevant prior studies available. RADIATION DOSE METRICS: Total DLP: 812.48 mGy-cm FINDINGS: Vertebrae: Examination is limited by motion artifact. Otherwise no acute cervical fracture. Multiple sclerotic lesions noted in several vertebral bodies, correlate with known history of malignancy. Straightening of the normal cervical lordosis which can be seen with spasm. Discs/Spinal canal/Neural foramina: Multilevel degenerative changes including disc space narrowing, endplate spurring and facet hypertrophy. Mild anterolisthesis of C4 on 5 probably degenerative in etiology. Soft tissues: Unremarkable. Lungs: No pneumothorax. CT/CT cervical spin wo con* [id number] IMPRESSION: No acute cervical fracture. Multiple sclerotic lesions noted in several vertebral bodies, correlate with known history of malignancy. Radiation Dose CTDIVOL = (mGy): DLP = 812.48 (mGy-cm)
--- NOTE | 2020-04-29 00:06 | CTR_ITS ---
PROCEDURE INFORMATION: Exam: CT Angiography Head With Contrast Exam date and time: 04/29/2020 12:20 AM Age: 64 years old Clinical indication: Headache; Additional info: AMS TECHNIQUE: Imaging protocol: Computed tomography angiography of the head with intravenous contrast. 3D rendering: MIP and/or 3D reconstructed images were created by the technologist. Radiation optimization: All CT scans at this facility use at least one of these dose optimization techniques: automated exposure control; mA and/or kV adjustment per patient size (includes targeted exams where dose is matched to clinical indication); or iterative reconstruction. Contrast material: VISI; Contrast volume: 95 ml; Contrast route: 20G; COMPARISON: CT head wo con* [id number] 04/29/2020 2:36 AM RADIATION DOSE METRICS: Total DLP: 1847.86 mGy-cm FINDINGS: Anterior cerebral arteries: No occlusion or significant stenosis. No aneurysm. Right internal carotid artery: Calcification of cavernous right internal carotid artery. Right middle cerebral artery: No occlusion or significant stenosis. No aneurysm. Right posterior cerebral artery: Variant supply of right posterior cerebral artery. Right vertebral artery: No occlusion or significant stenosis. No aneurysm. Left internal carotid artery: Slight effacement and minor narrowing of the left internal carotid artery at the level of skull base mass. Left middle cerebral artery: No occlusion or significant stenosis. No aneurysm. Left posterior cerebral artery: No occlusion or significant stenosis. No aneurysm. Left vertebral artery: No occlusion or significant stenosis. No aneurysm. Basilar artery: No occlusion or significant stenosis. No aneurysm. HEAD: Brain: Expansion of cerebrospinal fluid space within the lower aspect of the posterior fossa within the midline. Atrophic appearance of the cerebellum. Ventricles: Mild ventricular enlargement. Bones/joints: Destructive lytic skull base mass near the midline and positioned predominantly left of midline situated at the upper level of the clivus and adjacent sphenoid bone. Overall soft tissue area of involvement measures 1.7 x 1.7 by 2.4 cm. Partial destruction of the adjacent petrous portion of the sphenoid bone. The lateral soft tissue margin extends to the margin of the left carotid artery at the level of the carotid canal. Overall abnormal heterogeneous appearance of bone density throughout the calvarium with small intermixed areas of lucency and possible small areas of sclerosis. Sinuses: Minor mucosal thickening of ethmoid sinuses. Soft tissues: Skull base soft tissue mass partially extends at the posterior margin of sphenoid sinus on the left. IMPRESSION: 1. Destructive skull base mass as described. 2. Overall diffuse calvarial bone heterogeneity with possibly mixed lucent or small sclerotic changes worrisome for diffuse osseous neoplastic process. 3. Mild effacement of the medial aspect of left internal carotid artery at the carotid canal with slight narrowing. 4. Variant supply of right posterior cerebral artery. PROCEDURE INFORMATION: Exam: CT Angiography Neck With Contrast Exam date and time: 04/29/2020 12:20 AM Age: 64 years old Clinical indication: Headache; Additional info: AMS TECHNIQUE: Imaging protocol: Computed tomography angiography of the neck with intravenous contrast. 3D rendering: MIP and/or 3D reconstructed images were created by the technologist. Radiation optimization: All CT scans at this facility use at least one of these dose optimization techniques: automated exposure control; mA and/or kV adjustment per patient size (includes targeted exams where dose is matched to clinical indication); or iterative reconstruction. Contrast material: VISI; Contrast volume: 95 ml; Contrast route: 20G; COMPARISON: CT head wo con* [id number] 04/29/2020 2:36 AM RADIATION DOSE METRICS: Total DLP: 1847.86 mGy-cm FINDINGS: Right common carotid artery: No stenosis. No dissection or occlusion. Right internal carotid artery: No stenosis of the extracranial segment. No dissection or occlusion. Right external carotid artery: No occlusion or stenosis of the origin. Right vertebral artery: No stenosis. No dissection or occlusion. Left common carotid artery: No stenosis. No dissection or occlusion. Left internal carotid artery: No stenosis of the extracranial segment. No dissection or occlusion. Left external carotid artery: No occlusion or stenosis of the origin. Left vertebral artery: No stenosis. No dissection or occlusion. Aorta: Calcified thoracic aorta. Bones/joints: Abnormal bone mineral density pattern of the visualized osseous structures of the spine with overall diminutive bone mineral density with small suspicious areas of abnormal sclerosis concerning for diffuse osseous metastatic process. Other consideration could include primary bone neoplasm. Abnormal marrow space involving the visualized axial skeletal structures. Degenerative change of the spine. Anterior subluxation C3 on C4 and anterior subluxation C4 on C5. Soft tissues: Normal. No significant soft tissue swelling. Lymph nodes: Mediastinal calcified granulomatous lymph nodes. Lungs: Interstitial thickening within the lungs. More focal right apical pleural thickening. CT/CT angio headneck* [id number] IMPRESSION: 1. No evidence of vessel stenosis or occlusion. 2. Diffuse abnormal bone density with numerous small sclerotic foci . Additionally overall diminutive bone mineral density and in combination with lucent destructive process at the skull base findings could reflect mixed lucent and sclerotic metastases or primary bone neoplasm. 3. Irregular right apical pleural thickening. This may be due to pleural scarring. Early sessile neoplasm could not be entirely excluded. REFERENCES: NASCET CRITERIA. The degree of internal carotid artery stenosis is based on NASCET criteria. Normal is no stenosis. Mild is less than 50% stenosis. Moderate is 50-69% stenosis. Severe is 70% to 99% stenosis. Total occlusion is no detectable patent lumen. Radiation Dose CTDIVOL = (mGy): DLP = 1847.86~1847.86 (mGy-cm)
[2020-04-29 00:07] LABS: Amphetamines Screen Urine Negative (Negative); Barbiturates Screen Urine Negative (Negative); Benzodiazepines Screen Urine Negative (Negative); Cocaine Screen Urine Negative (Negative); Opiate Screen Urine Negative (Negative); PCP Screen Urine Negative (Negative); THC Screen Urine Negative (Negative)
[2020-04-29] MEDS: haloperidol inj 5 mg/mL INJ 1 mL IVP ×2 (00:30→14:50)
--- NOTE | 2020-04-29 00:55 | P.HP_ITS ---
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 Izhknyoc-ev-pno is at the bedside who is endorsing that her idnngi-nc-[id number] personality change in last 3 weeks after her cholesterol medication was changed by her primary care physician. She has been more forgetful, would get confused sometimes, lately she has been avoiding social interactions, watches television all day or stay in her room, she has not been getting outside her home as well. Today after she finished her dinner around 6:00pm she acted very bizarre, she was found to be very confused she did not know her and family around her, she seemed very anxious and kept talking about her sister and mother who are . Family did not notice any seizures, fever, vomiting, respiratory distress. Family is denying previous history of dementia, stroke. No recent camping, traveling or deer hunting. No one else in the family has any fever or diarrhea. She was seen by her PCP today, who stopped all of her medications because of her encephalopathy. We are not able to trace back which medication was changed. Review of records revealed that in 2008, she saw a brick handler for arthralgia and myalgias, she was given cyclobenzaprine, there were no signs of inflammatory arthritis. She was treated by Dr. Galeana for her breast cancer her breast cancer was ER/TX positive HER-2 negative, no recurrence of breast cancer. She was seen by [employer]OR in January this year at that time she was complaining of d epression low mood and fatigue. She denied signs of UTI at that point. She denied urinary incontinence but endorsed her prolapse may be a little more noticeable(cystocele). She was on pravastatin 10 mg. Of note, [id number] stating that for last couple of weeks she has been complaining about neck pain with some headache and was not able to extend her neck very well, they knew that because her microwave open is placed over on the higher shelf of the kitchen. Diagnostics in the ER revealed normal hemodynamics, she has been afebrile, no leukocytosis, normal chemistry, respiratory alkalosis blood gas, drug screen negative, no signs of UTI, glucose normal, chest x-ray negative Review of Systems General: Reports: ROS unobtainable due to medical condition (Encephalopathic) Medications/Allergies Home Medications Medication Instructions Recorded Confirmed Last Taken Type L. acidophilus 5 mg-digestive cap PO DAILY cap 01/22/20 01/22/20 Unknown History enzymes combo no.5 250 mg capsule ascorbic acid (vitamin C) 125 mg 500 mg PO DAILY tab 01/22/20 01/22/20 Unknown History chewable tablet calcium-vitamin D3-vitamin K 500 1 tab PO TID tab 01/22/20 01/22/20 Unknown History mg-500 unit-40 mcg chewable tablet citalopram 20 mg tablet 20 mg PO DAILY 01/22/20 01/22/20 Unknown History ferrous sulfate 325 mg (65 mg 325 mg PO DAILY 01/22/20 01/22/20 Unknown History iron) tablet gabapentin 300 mg capsule 600 mg PO DAILY cap 01/22/20 01/22/20 Unknown History levothyroxine 50 mcg capsule 50 mcg PO DAILY 01/22/20 01/22/20 Unknown History lorazepam 0.5 mg tablet 0.5 mg PO .At Bedtime tab 01/22/20 01/22/20 Unknown History multivitamin 1 tab PO DAILY 01/22/20 01/22/20 Unknown History omega-3 fatty acids 500 mg capsule 500 mg PO DAILY 01/22/20 01/22/20 Unknown History pravastatin 10 mg tablet 10 mg PO DAILY 01/22/20 01/22/20 Unknown History tramadol 50 mg tablet 50 mg PO QID tab 01/22/20 01/22/20 Unknown History Allergies Allergy/AdvReac Type Severity Reaction Status Date / Time atorvastatin [From Lipitor] Allergy Mild Muscle pain Verified 01/22/20 14:07 Penicillins Allergy Mild Hives, rash Verified 01/22/20 14:07 naproxen Allergy Unsure Verified 01/22/20 14:07 PFSH Acute PFSH: Medical History Anxiety with depression History of invasive ductal carcinoma of breast Right breast infiltrating ductal carcinoma. 02/2001 Primary tumor 1 cm, lumpectomy, axillary node dissection; ER/TX (+),HER2/iris (-). 2000 chemotherapy, followed by radiation, Tamoxifen ?5 years; Femara until 2007. Hyperlipidemia Hypothyroidism (acquired) Prolapse of vaginal wall with midline cystocele Surgical History H/O breast biopsy H/O dilation and curettage for persistent spotting. H/O lumpectomy (~02/19/01) --1983 right breast --02/19/2001 Right side; Carcinoma Lymph nodes taken H/O thumb surgery (~2006) Repair of right thumb trigger finger in May and left thumb trigger finger in June 2007. H/O tubal ligation (~11/15/93) H/O vaginal surgery (~08/07/11) preoperative diagnosis was a cystocele-grade 2. On examination under anesthesia there was a 2 x 2 centimeter mass noted in the vaginal cuff and as a result cystocele repair was not done and wide local excision of this vaginal mass was performed by Dr. Santamaria assisted by Dr. Dr. Torrez. -Pathology of this showed granulation tissue. H/O: hysterectomy (~02/22/11) total vaginal hysterectomy with bilateral salpingo-oophorectomy and uterosacral ligament was distention, cystoscopy done for uterovaginal prolap se and cystocele. Surgery was performed by Dr. Santamaria and Dr. Dr. Torrez. Once vault suspension was performed cystocele was reduced and no cystocele repair was done. Pathology was benign with atrophic ovaries. Family History Father Heart disease Diabetes Hyperlipidemia Hypertension Family/Other Heart disease Paternal aunt x2 Paternal uncle x 1 Grandfather Heart disease Paternal grandfather Mother Hyperlipidemia Family history of thyroid problem Stroke Grandmother Cancer, Onset Age: 80 MGM- BREAST CA Social History Smoking and tobacco status: never smoked Alcohol intake: never Substance/Drug Use: never Household members: family Housing: House Vitals/I&O/Wt Last Vital Signs Temp 98.5 F 04/28/20 22:17 Pulse 95 04/28/20 23:30 Resp 18 04/28/20 23:30 BP 101/80 04/28/20 22:55 Pulse Ox 97 04/28/20 23:45 Weight last 48 hrs Weight 63.503 kg Physical Exam Narrative: EXAM NARRATIVE: Head to toe examination Patient is not following verbal command He is mumbling some words, she said thirsty and then her speech was incomprehensible No facial Pupils are not asymmetrical No myoclonus identified Cold clammy skin, she is moving her arms and legs and resisting any active movement Encephalopathic, She is withdrawing to painful stimuli Able to protect her airway She had one episode of emesis, it was dark color, family stating she had chocolate drink S1, S2 no signs of heart failure or murmur No carotid bruit She show signs of discomfort when I do deep palpation of her abdomen otherwise bowel sounds Normal bilateral breath sounds without adventitious sounds No signs of dehydration edema gangrene ulcer of lower extremity Babinski sign negative, she has withdrawal affect Not able to check her sensation She is not showing any sign of neck pain on movement of her lower extremities Data : 04/28/20 22:25 04/28/20 22:25 Micro: Microbiology 04/28/20 22:57 Blood Culture - Preliminary Blood SPECIMEN COLLECTED 04/28/20 22:25 Blood Culture - Preliminary Blood SPECIMEN COLLECTED A&P Assessment and plan (1) Skull mass: Status: Acute (2) Breast cancer metastasized to bone: Status: Acute (3) Acute encephalopathy: Status: Acute (4) Personality change: Status: Acute (5) Depression: Status: Acute Additional A&P Information Acute encephalopathy secondary to bony metastases Skull base mass 1.6 x 1.5 cm, no occlusion of intracranial vessels She has multiple sclerotic lesions in her pelvis, vertebral bodies, skull base: Most likely breast cancer metastasized to bone Imaging discussed with the radiologist twice No signs of intracranial hypertension however she vomited once, she is able to protect her airways her GCS is 11 Keep her head end elevated, will use isotonic fluids for now Cranial imaging did not reveal any intracranial mass causing midline defect, intracranial hypertension, mass-effect, or masses found at the base which correlates with her head and neck pain before worsening of encephalopathy Avoid DVT prophylaxis because of multiple metastases Admit to ICU, high risk for intubation: Currently she is full code: Her intubation will be very high complexity because of vertebral cervical area of lytic lesions: Complications and risks associate with intubation explained to the Patient carries guarded prognosis, I have updated Silva's Jerry: Phone #[phone] Full code Avoid DVT prophylaxis with anticoagulation, will use SCDs N.p.o. Isotonic fluid resuscitation Family has been updated: would like to discuss her care with his children before making any further decision: Family has not decided whether they would like to pursue any diagnostic studies for now Attestations Medical Necessity Statement*: Acute encephalopathy with cancer metastases to skull need ICU close monitoring for intubation requirement Anticipating stay in the hospital cross more than 2 midnights, patient carries guarded prognosis Time Spent in Patient Care: (>than 50% of time spent in counselling and/or direct pt care on unit) . 60mins, Coding Level of Care Code Acute Outreach And Education Social Worker for Chg Fwd Diagnoses Skull mass M89.8X8 Breast cancer metastasized to bone C50.919; C79.51 Acute encephalopathy G93.40 Personality change F68.8 Depression F32.9
[2020-04-29 01:25] LABS: Troponin 5 2HR 8.23 ng/L (0-10); Troponin 5 2HR Delta 0.23 ABS# (0-10)
[2020-04-29] MEDS: LORazepam 2 mg/mL INJ 1 mL 1 MG IVP ×3 (02:10→14:50)
[2020-04-29] MEDS: iodixanol 320 mg/mL 100mL Btl IV ×2 (03:06→03:08)
[2020-04-29 04:41] LABS: Troponin 5 6HR 11.63 ng/L (0-10); Troponin 5 6HR Delta 3.63 ng/L (0-12)
[2020-04-29] MEDS: cefTRIAXone 2,000 MG in sodium chloride 0.9% (plus) 50 ML 100 MG IV (06:01)
--- NOTE | 2020-04-29 06:48 | PC.NURSE ---
Report received from MAGDALENE Driver. Patient brought to room via stretcher. Patient is restless and pulling at lines. Safely transported to ICU bed. Vital signs stable. Patient is removing gown and fidgeting in bed. Pulling tele patches off. Dr. Ortiz notified of patients increasing unrest and order was given for one-to-one observation.
[2020-04-29] MEDS: dexamethasone 10 mg/mL INJ IVP (06:59)
[2020-04-29] MEDS: sodium chloride 0.9% 1,000 ML 100 ML IV (06:59)
--- NOTE | 2020-04-29 07:00 | PC.NURSE ---
report received at bedside pt is unable to follow commands or verbalize at this time. pt is very restless, pulling at lines and wires. will monitor closely. attempted to place mask on the patient however the patient pulled the mask off.
[2020-04-29] MEDS: cefepime 2,000 MG in sodium chloride 0.9% (plus) 50 ML 100 MG IV (07:14)
[2020-04-29] MEDS: vancomycin 1,000 MG in sodium chloride 0.9% 250 ML 250 MG IV (08:06)
--- NOTE | 2020-04-29 09:42 | CT_ITS ---
WS: [id number] CT HEAD NONCONTRAST HISTORY: AMS, worsening mentation TECHNIQUE: Contiguous axial imaging performed through the brain in 2.5 mm imaging. Bone and soft tiss ue windows. Sagittal and coronal reformats reviewed. All CT scans at [facility] use at le ast one of these dose optimization techniques: automated exposure control; mA and/or kV adjustment pe r patient size (includes targeted exams where dose is matched to clinical indication); or iterative r econstruction. DLP: 697.86 mGy.cm COMPARISON: 04/29/2020 Mild motion artifact throughout the brain. Most significant artifact at the skull base. There is no evidence for an acute hemorrhage or midline shift. Ventricles are midline. There is diffu se low attenuation from chronic ischemic disease. Metastatic areas would not be visualized easily wit h this amount of motion. Mild atrophy. Ventricles: Minimal prominence of the ventricles. No hydrocephalus. Patient has a known destructive skull base mass centered in the LEFT clivus and petrous bone. Lytic c hanges are present within the clivus. The destructive skull base mass is probably causing at least a partial obstruction or effacement of the LEFT intracranial carotid artery through the petrous ridge. Paranasal sinuses: As visualized are clear. Mastoid air cells: Well pneumatized. Calvarium and scalp: Mildly heterogeneous appearance of the calvarium. Additional destructive lesion in the RIGHT lateral orbit measures [address]/CT head wo con* [id number] IMPRESSION: 1. No acute intracranial hemorrhage. 2. Motion artifact throughout the brain. 3. No significant amount of cerebral edema or change since study earlier the day. 4. Destructive skull base mass centered in the LEFT clivus and petrous bone wi th possible invasion or compression upon the LEFT intracranial ICA. 5. Additional lytic lesion which is likely metastatic site RIGHT lateral orbit .
[2020-04-29 10:10] LABS: ABG PCO2 28.9 mmHg (35-45); ABG PH Result 7.53 (7.35-7.45); Arterial Blood Gas Hematocrit 33.7 % (37-47); Base Excess ABG 1.9 mmol/L (-2.0-2.0); Blood Gas Allen Test Pos; Blood Gas Sample Site Radial, left; Blood Gas Sample Type Arterial; Oxygen Device ROOM AIR
--- NOTE | 2020-04-29 10:15 | PC.NURSE ---
pt transferred to ct via bed. dr pereira attempting transfer arrangements.
[2020-04-29 11:31] LABS: Hematocrit 34.8 % (37.0-47.0); Hemoglobin 10.9 g/dL (11.5-15.3); Mean Corpuscular HGB Conc 31.3 g/dL (30.0-36.0); Mean Corpuscular Hemoglobin 29.5 pg (28.0-34.0); Mean Corpuscular Volume 94.1 fL (81-99); Mean Platelet Volume 9.9 fL (7.4-10.4); Platelet Count 384 10^3/cmm (130-400); Red Cell Distribution Width 15.6 % (12.1-15.1); White Blood Count 12.8 10^3/uL (4.0-10.0)
[2020-04-29 11:52] LABS: Alanine Aminotransferase 15 U/L (0-33); Albumin Level 4.1 g/dL (3.5-5.2); Alkaline Phosphatase 76 IU/L (35-105); Anion Gap 14.9 (5-19); Aspartate Amino Transferase 28 U/L (0-32); Blood Urea Nitrogen 7 mg/dL (8-23); Calcium 9.2 mg/dL (8.5-10.5); Carbon Dioxide 26 mmol/L (22-29); Chloride 106 mmol/L (98-107); Globulin 2.4 g/dL (1.3-4.6); Glomerular Filtration Rate 100.6 mL/min (90-130); Glucose 148 mg/dL (65-115); Osmolality Calculated 295 mOsm/kg (285-295); Potassium 3.9 mmol/L (3.5-5.1); Sodium 143 mmol/L (136-145); Total Bilirubin 0.2 mg/dL (0.15-1.2); Total Protein 6.5 g/dL (6.6-8.7)
[2020-04-29] MEDS: dexamethasone 4 mg/mL INJ IVP (11:58)
--- NOTE | 2020-04-29 12:10 | PM.PN ---
Subjective Subjective: Interval history: Patient restless in bed with RN at bedside. RN reported that patient will occasionally turn her head in response to her name, she did verbalize the work ouch when moved for repeat CT head earlier. Vitals/I&O/Wt Last Vital Signs Temp 97.8 F 04/29/20 08:00 Pulse 83 04/29/20 11:00 Resp 18 04/29/20 11:00 BP 114/73 04/29/20 11:00 Pulse Ox 96 04/29/20 11:00 04/28/20 04/29/20 04/29/20 22:59 06:59 14:59 Intake Total 825 / 825 Balance 825 / 825 Weight last 48 hrs Weight 63.503 kg Physical Exam Urinary Catheter Management^: [place]: Cath Placed During This Visit: yes Reason for Continuing Indwelling Catheter: Accurate Measurement of Urinary Output in Critically Ill Patients Urinary Catheter Date of Insertion: 04/29/20 Urinary Catheter Time of Insertion: 01:05 Data : 04/29/20 10:43 04/29/20 10:43 Micro: Microbiology 04/28/20 22:57 Blood Culture - Preliminary Blood SPECIMEN COLLECTED 04/28/20 22:25 Blood Culture - Preliminary Blood SPECIMEN COLLECTED A&P Additional A&P Information Patient with skull base mass and acute encephalopathy. Skull base mass of 1.7 x 1.7 x 2.4 cm to the left of midline. CT scan showing partial destruction into the sphenoid bone as well as left sphenoid sinus extension. Diffuse osseous neoplastic process likely. Patient does have some right lateral orbit involvement on repeat CT of the head. Patient has right apical pleural thickening on CT scan of the chest. Discussed with Dr. Galeana, oncologist, findings of CT scan and recommendation was to transfer for higher level of care for inpatient oncology, neurosurgery and neurology. Acute encephalopathy secondary to concern for diffuse neoplastic process. 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 Unable to perform lumbar puncture due to patient continuing to remain restless. GCS at time of exam this morning is 11, patient does turn her head to her name occasionally and does withdraw from pain, only vocalized the word ouch when having testing performed. Otherwise patient has been nonverbal. Moving extremities appropriately, restless in bed and difficulty following commands. Discussed with physician at [facility], due to patient's concern for extensive metastatic disease they recommended higher level of care. Discussed with [facility] for transfer. Discussed with chief of neurosurgery and with ICU fellow. Recommendation for intubation for airway protection in route. Coding Level of Care Code Acute Thermodynamic Physicist for Ladan Dorsey
[2020-04-29 12:33] LABS: Absolute Segmented Neutrophil 12.5 10/cmm (1.6-7.1); Lymphocytes 1 %; Monocytes Absolute 0.1 10^3/cmm (0.1-0.6); Segmented Neutrophils 98 %; Total Cells Counted 100 (0-100)
[2020-04-29 12:34] LABS: Platelet Estimate Normal (Normal)
--- NOTE | 2020-04-29 12:57 | PM.TDS ---
Transfer Summary Providers Date of Admission: 04/29/20 04:45 Date of Discharge: 04/29/20 Attending Provider at Admission: Arleth Ortiz MD Attending Provider at Transfer: Rosi Mota DO Primary Care Provider: Jluis Pickard MD Anticipated Date of Transfer: Anticipated date of transfer: 04/29/20 Receiving Facility & Provider: Receiving Provider: Dr. Garcia Receiving facility: [facility] Diagnoses at Discharge Discharge Diagnosis (1) Skull mass: Status: Acute Problem details: 1.7 x 1.7 x 2.4 cm skull base mass to the left of midline (2) Breast cancer metastasized to bone: Status: Acute Problem details: History of invasive ductal carcinoma of breast Right breast infiltrating ductal carcinoma. 02/2001 Primary tumor 1 cm, lumpectomy, axillary node dissection; ER/CO (+),HER2/iris (-). 2000 chemotherapy, followed by radiation, Tamoxifen ?5 years; Femara until 2007. (3) Acute encephalopathy: Status: Acute Problem details: Gradual decline over the past 3 weeks per family report with acute deterioration over the past 24 hours. 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 Ortiz: Silva Aj is a 64 year old female who carries history of grade 1 infiltrating ductal carcinoma of right breast stage IIIc status post chemotherapy, lumpectomy, dyslipidemia, iron deficiency anemia, hypothyroidism was brought in by the family because of altered mental status/confusion. [id number] is at the bedside who is endorsing that her [id number]-[id number] personality change in last 3 weeks after her cholesterol medication was changed by her primary care physician. She has been more forgetful, would get confused sometimes, lately she has been avoiding social interactions, watches television all day or stay in her room, she has not been getting outside her home as well. Today after she finished her dinner around 6:00pm she acted very bizarre, she was found to be very confused she did not know her and family around her, she seemed very anxious and kept talking about her sister and mother who are . Family did not notice any seizures, fever, vomiting, respiratory distress. Family is denying previous history of dementia, stroke. No recent camping, traveling or deer hunting. No one else in the family has any fever or diarrhea. She was seen by her PCP today, who stopped all of her medications because of her encephalopathy. We are not able to trace back which medication was changed. Review of records revealed that in 2008, she saw a tube bending machine operator for arthralgia and myalgias, she was given cyclobenzaprine, there were no signs of inflammatory arthritis. She was treated by Dr. Galeana for her breast cancer her breast cancer was ER/CO positive HER-2 negative, no recurrence of breast cancer. She was seen by [employer] in January this year at that time she was complaining of depression low mood and fatigue. She denied signs of UTI at that point. She denied urinary incontinence but endorsed her prolapse may be a little more noticeable(cystocele). She was on pravastatin 10 mg. Of note, [id number] stating that for last couple of weeks she has been complaining about neck pain with some headache and was not able to extend her neck very well, they knew that because her microwave open is placed over on the higher shelf of the kitchen. Diagnostics in the ER revealed normal hemodynamics, she has been afebrile, no leukocytosis, normal chemistry, respiratory alkalosis blood gas, drug screen negative, no signs of UTI, glucose normal, chest x-ray negative Treated her empirically for meningitis considering skull base mass with vancomycin and cefepime for MRSA and pseudomonal coverage She is allergic to penicillin, would not add ampicillin, patient is not laying still her lumbar puncture will be very risky at this point, holding off on CSF studies, I would add dexamethasone 10 mg IV x1 , 4 mg every 6 hours Patient was admitted to the ICU with neurologic checks. She continued to have acute encephalopathy and due to the concern for skull base mass with partial destruction of the sphenoid bone and extension into the left sphenoid sinus and concern for diffuse osseous neoplastic process she was recommended to be transferred to a higher level of care. Repeat CT head was performed on in the morning which showed no significant increase in cerebral edema or change since prior study. She was scheduled for an MRI, however patient when is able to lie still for the procedure and it would require transport to another building for the imaging study by EMS, which is not felt best at this time. No lumbar puncture was performed due to patient being very restless and unable to lie still for the procedure. Patient remained afebrile and oxygen saturations remained stable on room air, other vital signs stable. Discussed with oncologist, Dr. Galeana and recommendation due to concern for potential meningeal carcinomatosis was for patient to be transferred to a higher level of care with inpatient oncology, neurology and neurosurgery availability. Patient was continued on vancomycin and cefepime empirically along with dexamethasone 4 mg every 6 hours. Patient was also given a loading dose of Keppra, 1 g. No evidence of any epileptic activity, however no EEG availability at this time. Discussed with patient's family members including her and daughter about transfer to higher level of care, they verbalized understanding and agreed with plan. Patient's GCS on time of transfer was 11, she did verbalize ouch when undergoing diagnostic testing and vena puncture, she would occasionally turn her head to her name but would not follow any complex commands. Patient protecting airway at this time. No other focal deficits at this time, eyes spontaneously open. 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 Discussed with [facility] for transfer for higher level of care. Discussed with Dr. Garcia and he graciously accepted patient in transfer. Recommended mode of transportation, air transport due to concerns with acute encephalopathy and findings that are noted above. Discussed air transport with family and they agreed and verbalized understanding. Patient was accepted to neuroscience ICU. Physical Exam Const: NUTRITIONAL APPEARANCE: thin OTHER: Restless HENMT: COMMON NORMALS: normocephalic HEAD & SCALP: normocephalic FACE & SINUS: face symmetric NOSE: Normal nares present Eye: COMMON NORMALS: Equal, round and reactive pupils present GENERAL EYE: appearance normal, both eyes and all related structures PUPIL: Yes Equal, round and reactive pupils present Neck/C-Spine: COMMON NORMALS: no meningeal signs Resp: COMMON NORMALS: normal respiratory effort, No retractions, No use of accessory muscles and clear to auscultation bilaterally EFFORT & INSPECTION: No labored AUSCULTATION: clear to auscultation bilaterally, no rales, no rhonchi and no wheezes Cardio: COMMON NORMALS: regular rate, regular rhythm and No murmurs present (Cardio) RATE: regular rate RHYTHM: regular rhythm GI: COMMON NORMALS: Soft to palpation and No hepatosplenomegaly present AUSCULTATION: Yes normoactive bowel sounds PALPATION: Yes Soft to palpation and Yes No hepatosplenomegaly present : COMMON NORMALS: Yes normal external appearance BLADDER/KIDNEY EXAM: Yes catheter in place Back/Pelvis: THORACIC SPINE/UPPER BACK: Yes normal to inspection Extremity: COMMON NORMALS: no joint enlargement, no clubbing, cyanosis or edema and no pedal edema Neuro: MENINGEAL SIGNS: Yes no meningeal signs GAIT: Yes Unable to assess gait OTHER: Patient continues to be restless and altered. Moving all extremities equally, however unable to perform strength testing or sensation testing in the upper and lower extremities due to acute encephalopathy. Patient opens her eyes spontaneously, has largely been nonverbal, however will vocalize the word ouch when undergoing diagnostic studies. Patient does withdraw from pain. Negative Babinski's, pupils are symmetric, no facial droop appreciated. Urinary Catheter Management^: Campo: Cath Placed During This Visit: yes Reason for Continuing Indwelling Catheter: Accurate Measurement of Urinary Output in Critically Ill Patients Urinary Catheter Date of Insertion: 04/29/20 Urinary Catheter Time of Insertion: 01:05 TS Data Data Completed and Pending: Completed Studies During Hospitalization Category Date Time Status CT abdomen pelvis w con* [id number] Stat Cat Scan 04/28/20 22:[address] angio headneck * [id number] Urge nt Cat Scan 04/29/20 00:[address] cervical spin wo con* [id number] Urge nt Cat Scan 04/29/20 00:[address] head wo con* [id number] Stat Cat Scan 04/28/20 22:[address] head wo con* 7 0450 Urgent Cat Scan 04/29/20 09:42 Completed XR chest 1V horacio ble [id number] Stat Exams 04/28/20 22:36 Completed Pending at discharge Category Date Time Status Basic Metabolic P rupert AM LABS Lab 04/30/20 04:00 Ordered Blood Culture Sta t Lab 04/28/20 22:57 Results Vancomycin Trough Timed Lab 05/01/20 07:00 Ordered MR head w con [id number] Routine MRI 04/29/20 06:31 Ordered Labs from last 24 hours 04/29/20 04/29/20 04/29/20 10:43 10:43 09:58 WBC 12.8 H RBC 3.70 L Hgb 10.9 L Hct 34.8 L MCV 94.1 MCH 29.5 MCHC 31.3 RDW 15.6 H Plt Count 384 MPV 9.9 Neut % (Auto) Lymph % (Auto) Sevier % (Auto) Eos % (Auto) Baso % (Auto) Neut # (Auto) Lymph # (Auto) Sevier # (Auto) Eos # (Auto) Baso # (Auto) Nucleated RBC % (a uto) Total Counted 100 Segmented Neutroph ils 98 Abs Segm Neuts (Ma n) 12.5 H Lymphocytes (Manua l) 1 Monocytes (Manual) 1.0 Absolute Monocytes 0.1 Nucleated RBCs # Platelet Estimate Normal PT INR Specimen Type Arterial Sample Site Radial, left ABG pH 7.53 H ABG pCO2 28.9 L ABG pO2 155.0 H* ABG HCO3 24.0 ABG Base Excess 1.9 Fan Test Pos Hematocrit 33.7 L O2 Delivery Device Room air FiO2 21.0 Poultry Cleaner ID cak Sodium 143 Potassium 3.9 Chloride 106 Carbon Dioxide 26 Anion Gap 14.9 BUN 7 L Creatinine 0.6 GFR Calculation 100.6 Glucose 148 H POC Glucose Calculated Osmolal ity 295 Lactic Acid Calcium 9.2 Magnesium Total Bilirubin 0.2 AST 28 ALT 15 Alkaline Phosphata se 76 Creatine Kinase Troponin I 6 Hour Troponin I Hi Sens Del Troponin T Baselin e Troponin T 120 Min [place] Delta Troponin T Total Protein 6.5 L Albumin 4.1 Globulin 2.4 Lipase TSH Urine Color Urine Appearance Urine pH Ur Specific Gravit y Urine Protein Urine Glucose (UA) Urine Ketones Urine Blood Urine Nitrate Urine Bilirubin Prot Sulfosalicyli c Acd Urine Urobilinogen Ur Leukocyte Randa ase Urine RBC Urine WBC Ur Squamous Epith Cells Urine Bacteria Urine Opiates Scre en Ur Barbiturates Sc reen Ur Phencyclidine S crn Ur Amphetamines Sc reen U Benzodiazepines Scrn Urine Cocaine Scre en U Marijuana (THC) Screen Ethyl Alcohol Serum Ketones 04/29/20 04/29/20 04/28/20 04:15 00:45 23:07 WBC RBC Hgb Hct MCV MCH MCHC RDW Plt Count MPV Neut % (Auto) Lymph % (Auto) [place]vier % (Auto) Eos % (Auto) Baso % (Auto) Neut # (Auto) Lymph # (Auto) [place]vier # (Auto) Eos # (Auto) Baso # (Auto) Nucleated RBC % (a uto) Total Counted Segmented Neutroph ils Abs Segm Neuts (Ma n) Lymphocytes (Manua l) Monocytes (Manual) Absolute Monocytes Nucleated RBCs # Platelet Estimate PT INR Specimen Type Sample Site ABG pH ABG pCO2 ABG pO2 ABG HCO3 ABG Base Excess Fan Test Hematocrit O2 Delivery Device FiO2 Poultry Cleaner ID Sodium Potassium Chloride Carbon Dioxide Anion Gap BUN Creatinine GFR Calculation Glucose POC Glucose 124 Calculated Osmolal ity Lactic Acid Calcium Magnesium Total Bilirubin AST ALT Alkaline Phosphata se Creatine Kinase Troponin I 6 Hour 11.63 H Troponin I Hi Sens Del 3.63 Troponin T Baselin e Troponin T 120 Min [place] 8.23 Delta Troponin T 0.23 Total Protein Albumin Globulin Lipase TSH Urine Color Urine Appearance Urine pH Ur Specific Gravit y Urine Protein Urine Glucose (UA) Urine Ketones Urine Blood Urine Nitrate Urine Bilirubin Prot Sulfosalicyli c Acd Urine Urobilinogen Ur Leukocyte Randa ase Urine RBC Urine WBC Ur Squamous Epith Cells Urine Bacteria Urine Opiates Scre en Ur Barbiturates Sc reen Ur Phencyclidine S crn Ur Amphetamines Sc reen U Benzodiazepines Scrn Urine Cocaine Scre en U Marijuana (THC) Screen Ethyl Alcohol Serum Ketones 04/28/20 04/28/20 04/28/20 22:50 22:40 22:40 WBC RBC Hgb Hct MCV MCH MCHC RDW Plt Count MPV Neut % (Auto) Lymph % (Auto) [place] % (Auto) Eos % (Auto) Baso % (Auto) Neut # (Auto) Lymph # (Auto) [place] # (Auto) Eos # (Auto) Baso # (Auto) Nucleated RBC % (a uto) Total Counted Segmented Neutroph ils Abs Segm Neuts (Ma n) Lymphocytes (Manua l) Monocytes (Manual) Absolute Monocytes Nucleated RBCs # Platelet Estimate PT INR Specimen Type Arterial Sample Site Brachial, right ABG pH 7.63 H* ABG pCO2 23.0 L ABG pO2 103.0 H ABG HCO3 24.1 ABG Base Excess 4.0 H Fan Test N/a Hematocrit 33.7 L O2 Delivery Device None FiO2 21.0 Poultry Cleaner ID [email or web address] Sodium Potassium Chloride Carbon Dioxide Anion Gap BUN Creatinine GFR Calculation Glucose POC Glucose Calculated Osmolal ity Lactic Acid Calcium Magnesium Total Bilirubin AST ALT Alkaline Phosphata se Creatine Kinase Troponin I 6 Hour Troponin I Hi Sens Del Troponin T Baselin e Troponin T 120 Min [place] Troponin T Total Protein Albumin Globulin Lipase TSH Urine Color Yellow Urine Appearance Clear Urine pH 8 H Ur Specific Gravit y 1.010 Urine Protein Neg Urine Glucose (UA) Norm Urine Ketones Negative Urine Blood Neg Urine Nitrate Negative Urine Bilirubin Neg Prot Sulfosalicyli c Acd Negative Urine Urobilinogen Norm Ur Leukocyte Randa ase Negative Urine RBC Rare Urine WBC Rare Ur Squamous Epith Cells Rare Urine Bacteria Trace Urine Opiates Scre en Negative Ur Barbiturates Sc reen Negative Ur Phencyclidine S crn Negative Ur Amphetamines Sc reen Negative U Benzodiazepines Scrn Negative Urine Cocaine Scre en Negative U Marijuana (THC) Screen Negative Ethyl Alcohol Serum Ketones 04/28/20 04/28/20 04/28/20 22:25 22:25 22:25 WBC RBC Hgb Hct MCV MCH MCHC RDW Plt Count MPV Neut % (Auto) Lymph % (Auto) [place] % (Auto) Eos % (Auto) Baso % (Auto) Neut # (Auto) Lymph # (Auto) [place] # (Auto) Eos # (Auto) Baso # (Auto) Nucleated RBC % (a uto) Total Counted Segmented Neutroph ils Abs Segm Neuts (Ma n) Lymphocytes (Manua l) Monocytes (Manual) Absolute Monocytes Nucleated RBCs # Platelet Estimate PT INR Specimen Type Sample Site ABG pH ABG pCO2 ABG pO2 ABG HCO3 ABG Base Excess Fan Test Hematocrit O2 Delivery Device FiO2 Poultry Cleaner ID Sodium Potassium Chloride Carbon Dioxide Anion Gap BUN Creatinine GFR Calculation Glucose POC Glucose Calculated Osmolal ity Lactic Acid 1.5 Calcium Magnesium Total Bilirubin AST ALT Alkaline Phosphata se Creatine Kinase Troponin I 6 Hour Troponin I Hi Sens Del Troponin T Baselin e 8 Troponin T 120 Min [place] Troponin T Total Protein Albumin Globulin Lipase TSH Urine Color Urine Appearance Urine pH Ur Specific Gravit y Urine Protein Urine Glucose (UA) Urine Ketones Urine Blood Urine Nitrate Urine Bilirubin Prot Sulfosalicyli c Acd Urine Urobilinogen Ur Leukocyte Randa ase Urine RBC Urine WBC Ur Squamous Epith Cells Urine Bacteria Urine Opiates Scre en Ur Barbiturates Sc reen Ur Phencyclidine S crn Ur Amphetamines Sc reen U Benzodiazepines Scrn Urine Cocaine Scre en U Marijuana (THC) Screen Ethyl Alcohol Serum Ketones Negative 04/28/20 04/28/20 04/28/20 22:25 22:25 22:25 WBC 7.5 RBC 3.89 L Hgb 11.2 L Hct 35.2 L MCV 90.5 MCH 28.8 MCHC 31.8 RDW 15.4 H Plt Count 414 H MPV 10.1 Neut % (Auto) 65.9 Lymph % (Auto) 23.1 [place] % (Auto) 8.9 Eos % (Auto) 1.3 Baso % (Auto) 0.7 Neut # (Auto) 5.0 Lymph # (Auto) 1.7 [place] # (Auto) 0.7 Eos # (Auto) 0.1 Baso # (Auto) 0.1 Nucleated RBC % (a uto) 0 Total Counted Segmented Neutroph ils Abs Segm Neuts (Ma n) Lymphocytes (Manua l) Monocytes (Manual) Absolute Monocytes Nucleated RBCs # 0.0 Platelet Estimate PT 13.00 INR 0.95 Specimen Type Sample Site ABG pH ABG pCO2 ABG pO2 ABG HCO3 ABG Base Excess Fan Test Hematocrit O2 Delivery Device FiO2 Poultry Cleaner ID Sodium 142 Potassium 3.8 Chloride 103 Carbon Dioxide 25 Anion Gap 17.8 BUN 10 Creatinine 0.5 GFR Calculation 124.2 Glucose 127 H POC Glucose Calculated Osmolal ity 292 Lactic Acid Calcium 10.3 Magnesium 2.2 Total Bilirubin 0.3 AST 29 ALT 16 Alkaline Phosphata se 77 Creatine Kinase 58 Troponin I 6 Hour Troponin I Hi Sens Del Troponin T Baselin e Troponin T 120 Min [place] Troponin T Total Protein 6.5 L Albumin 4.4 Globulin 2.1 Lipase 67 H TSH 2.51 Urine Color Urine Appearance Urine pH Ur Specific Gravit y Urine Protein Urine Glucose (UA) Urine Ketones Urine Blood Urine Nitrate Urine Bilirubin Prot Sulfosalicyli c Acd Urine Urobilinogen Ur Leukocyte Randa ase Urine RBC Urine WBC Ur Squamous Epith Cells Urine Bacteria Urine Opiates Scre en Ur Barbiturates Sc reen Ur Phencyclidine S crn Ur Amphetamines Sc reen U Benzodiazepines Scrn Urine Cocaine Scre en U Marijuana (THC) Screen Ethyl Alcohol < 10 Serum Ketones Vitals: Last Vital Signs Temp 97.8 F 04/29/20 08:00 Pulse 83 04/29/20 12:00 Resp 18 04/29/20 12:00 BP 114/73 04/29/20 12:00 Pulse Ox 96 04/29/20 11:00 TS Medications Medications Home Medications L. acidophilus 5 mg-digestive enzymes combo no.5 250 mg capsule cap PO DAILY cap 01/22/20 [History Confirmed 01/22/20] ascorbic acid (vitamin C) 125 mg chewable tablet 500 mg PO DAILY tab 01/22/20 [History Confirmed 01/22/20] calcium-vitamin D3-vitamin K 500 mg-500 unit-40 mcg chewable tablet 1 tab PO TID tab 01/22/20 [History Confirmed 01/22/20] citalopram 20 mg tablet 20 mg PO DAILY 01/22/20 [History Confirmed 01/22/20] ferrous sulfate 325 mg (65 mg iron) tablet 325 mg PO DAILY 01/22/20 [History Confirmed 01/22/20] gabapentin 300 mg capsule 600 mg PO DAILY cap 01/22/20 [History Confirmed 01/22/20] levothyroxine 50 mcg capsule 50 mcg PO DAILY 01/22/20 [History Confirmed 01/22/20] lorazepam 0.5 mg tablet 0.5 mg PO .At Bedtime tab 01/22/20 [History Confirmed 01/22/20] multivitamin 1 tab PO DAILY 01/22/20 [History Confirmed 01/22/20] omega-3 fatty acids 500 mg capsule 500 mg PO DAILY 01/22/20 [History Confirmed 01/22/20] pravastatin 10 mg tablet 10 mg PO DAILY 01/22/20 [History Confirmed 01/22/20] tramadol 50 mg tablet 50 mg PO QID tab 01/22/20 [History Confirmed 01/22/20] Active Medications Dexamethasone (Decadron) 4 mg IVP Q6H AYAN Last Admin: 04/29/20 11:58 Dose: 4 mg Documented by: Haloperidol Lactate (Haldol Inj) 0.5 mg IVP Q6H PRN PRN Reason: AGITATION Sodium Chloride (Sodium Chloride 0.9%) 1,000 mls @ 100 mls/hr IV .Q10H AYAN Last Admin: 04/29/20 06:59 Dose: 100 mls/hr Documented by: Cefepime HCl 2,000 mg/ Sodium (Chloride) 50 mls @ 100 mls/hr IV Q8H AYAN; Protocol Last Admin: 04/29/20 07:14 Dose: 100 mls/hr Documented by: Vancomycin HCl 1,000 mg/ (Sodium Chloride) 250 mls @ 250 mls/hr IV Q12H AYAN; Protocol Last Admin: 04/29/20 08:06 Dose: 250 mls/hr Documented by: Levetiracetam 1,000 mg/ Sodium (Chloride) 110 mls @ 440 mls/hr IV Q12H AYAN Lorazepam (Ativan) 1 mg IVP Q6H PRN PRN Reason: ANXIETY Last Admin: 04/29/20 10:04 Dose: 1 mg Documented by: Morphine Sulfate (Morphine) 4 mg IVP Q4H PRN PRN Reason: SEVERE PAIN Ondansetron HCl (Zofran) 4 mg IVP Q4H PRN PRN Reason: NAUSEA AND VOMITING Last Admin: 04/28/20 23:37 Dose: 4 mg Documented by: Discharge Plan Discharge Patient Disposition: Xfer Short-Term Hosp Condition: Fair Prescriptions: No Action citalopram [Celexa] 20 mg tablet 20 mg PO DAILY RF: 0 levothyroxine 50 mcg capsule 50 mcg PO DAILY RF: 0 pravastatin 10 mg tablet 10 mg PO DAILY RF: 0 omega-3 fatty acids 500 mg capsule 500 mg PO DAILY RF: 0 L. acidophilus-dig enz cmb 5 5-250 mg capsule PO DAILY RF: 0 tramadol 50 mg tablet 50 mg PO QID RF: 0 multivitamin [One-A-Day Essential] Tablet 1 tab PO DAILY RF: 0 gabapentin 300 mg capsule 600 mg PO DAILY RF: 0 ferrous sulfate [Feosol] 325 mg (65 mg iron) tablet 325 mg PO DAILY RF: 0 ascorbic acid (vitamin C) 125 mg tablet,chewable 500 mg PO DAILY RF: 0 calcium-vitamin D3-vitamin K 500-500-40 mg-unit-mcg tablet,chewable 1 tab PO TID RF: 0 lorazepam 0.5 mg tablet 0.5 mg PO .At Bedtime RF: 0 Discharge Orders: Transfer Out of Facility (Order); Ordered 04/29/20 Ordered By: Rosi Mota Activity Restrictions/Additional Instructions: Patient currently on cefepime 2 g IV every 8 hours Decadron 4 mg IV push every 6 hours Given loading dose of Keppra 1 g Given Ativan IV due to restlessness, given Haldol injection due to restlessness Vancomycin 1 g every 12 hours Given 1 dose of Rocephin 2 g while in the emergency department, this was not continued. Transfer Attestations Time Spent in Transfer Care*: critical care time (Critical care time in the ICU due to patient with acute encephalopathy and concern for new metastatic disease with the potential of meningeal carcinomatosis. Consultation with Dr. Galeana, outpatient oncology and recommendation for transfer to higher level of care., Discussion with outside facility, multiple discussions with family members on plan of care, discussion with primary care provider to make him aware of diagnosis and clinical condition.) Critical Care Time (min): 60 Specific Discharge Activities: Specific discharge activities: educating and/or supporting family/caregiver, discussing with pcp/other providers, documenting/other paperwork and evaluating patient/reviewing data Quality Metrics Clinical Quality Measures: During this hospital stay, did patient experience: None Coding Level of Care Code Acute [employer]vp [employer] Fwd Diagnoses Skull mass M89.8X8 Breast cancer metastasized to bone C50.919; C79.51 Acute encephalopathy G93.40 Personality change F68.8 Depression F32.9
--- NOTE | 2020-04-29 13:28 | PC.NURSE ---
report called to Ely DEL CASTILLO at .
[2020-04-29 14:31] LABS: Ammonia 10 umol/L (11-51)
--- NOTE | 2020-04-29 15:05 | PC.NURSE ---
pt transferred to via air evac. [facility] updated on expected pt arrival.
== END 2020-04-29 15:00 | disposition short-term general hospital (02) | DRG 565 ==
LOC: ER 22:40 → ICU 04-29 05:31
PROVIDERS: Admitting Provider Internal Medicine; Emergency Provider Emergency Medicine; PCP Family Medicine; Visit Provider Family Medicine
DX: M89.8X8 Other specified disorders of bone, other site (principal); G93.40 Encephalopathy, unspecified; C79.51 Secondary malignant neoplasm of bone; Z85.3 Personal history of malignant neoplasm of breast; E78.5 Hyperlipidemia, unspecified; Z92.21 Personal history of antineoplastic chemotherapy; Z92.3 Personal history of irradiation; D50.9 Iron deficiency anemia, unspecified; E03.9 Hypothyroidism, unspecified; F68.8 Other specified disorders of adult personality and behavior; F41.8 Other specified anxiety disorders
CPT/HCPCS: 12345; 36415; 36416; 36600; 51702; 70450; 70496; 70498; 71045; 72125; 74177; 80053; 80306; 80307; 81001; 82009; 82140; 82550; 82803; 82962; 83605; 83690; 83735; 84443; 84484; 85007; 85025; 85027; 85610; 87040; 93005; 96375; 99284; J0692; J0696; J1100; J1630; J1953; J2060; J2405; J3370; J7030; J7050; Q9967

== ENCOUNTER 2020-05-19 08:09 | Outpatient (CLI) | payer BC, SELFPAY ==
--- NOTE | 2020-05-19 | MR_ITS ---
WS: [id number] MRI CERVICAL SPINE NONCONTRAST AND CONTRAST TECHNIQUE: Sagittal T1, T2 and STIR imaging. Axial T2, gradient, and fiesta imaging. Post gadolinium imaging was obtained. CLINICAL INFORMATION: BREAST CANCER WITH MENINGEAL SPREAD COMPARISON: CT cervical April 29, 2020 FINDINGS: Straightening of the normal cervical lordosis. Cord signal is normal. No high-grade central canal sara nosis. Diffuse bony metastasis throughout the visualized bony structures including the cervical spine and upper thoracic spine posterior elements clivus and skull base. No acute appearing compression fr actures. Prominent enhancing lesions involving the clivus and skull base. Evidence of recent postoperative ch anges involving the nasal vault with fat graft. Diffuse leptomeningeal enhancement extending along the cervical cord and cervicomedullary junction an d gareth consistent with leptomeningeal spread of disease. Tiny amount of enhancement in the cerebellar folia. More prominent dorsal dural enhancement involving the upper thoracic cord dorsally. Cord sign al remains normal. MR/MR cervical spine wo/w [id number] IMPRESSION: 1. Diffuse leptomeningeal spread of disease with circumferential enhancement a bout the gareth, brainstem ,cervical cord and upper thoracic cord. 2. No intraparenchymal lesions. Cord signal remains normal. 3. Extensive bony metastasis throughout the visualized bony structures includi ng the cervical spine, thoracic spine, posterior elements, skull base, clivus. 4. Evidence of fat graft packing in the nasal vault and inferior sella presuma alice due to recent postoperative changes.
--- NOTE | 2020-05-19 | MR_ITS ---
WS: [id number] MRI HEAD WITH CONTRAST TECHNIQUE: Sagittal T1, T2 axial, T2 axial FLAIR, axial susceptibility weighted imaging, axial diffus ion weighted images, and coronal T2 images were obtained. Pre and post-T1 axial and post T1 coronal i mages. ADC and FSPGR images. CLINICAL INFORMATION: BREAST CANCER WITH MENINGEAL SPREAD COMPARISON: CT April 29, 2020 FINDINGS: No evidence of restricted diffusion to suggest acute ischemia. Ventricular system and basal cisterns are patent. Thin subdural hematoma with enhancing dural thickening likely due to dural metastasis ove rlying the right frontal lobe. This measures 2 mm in maximum dimension. No mass effect or midline malia ft. Associated T1 hyperintensity compatible with a small amount of subacute blood products. Enhancement involving the 7th and 8th cranial nerves consistent leptomeningeal spread of disease. No enhancing intraparenchymal lesions. Several enhancing small foci in the calvarium. Numerous bony meta stasis involving the upper cervical spine and skull base and clivus. Diffuse enhancement along the sk ull base and cavernous sinuses. Mild to moderate ventricular dilatation with a small amount of periventricular T2 hyperintensity cons istent with mild to moderate hydrocephalus with a small amount of transependymal edema. Enhancing les ion involving the left skull base. Fat signal lesion likely represents fat packing with recent skull base surgery involving the posterior nasal vault extending into the left inferior aspect of the sella and clivus. Correlate with recent surgery. MR/MR head wo/w con [id number] IMPRESSION: 1. No evidence of restricted diffusion to suggest acute ischemia. 2. Dural thickening with a small amount of subdural blood products overlying t he right frontal convexity and right temporal lobe measuring 2 mm. No significa nt mass effect or midline shift. 3. Evidence of leptomeningeal spread of disease involving the skull base with enhancement along the 7th and 8th cranial nerves. Small amount of leptomeningea l enhancement in the upper cervical cord. 4. No intraparenchymal metastatic lesions. 5. Numerous metastatic lesions involving the calvarium skull base and upper ce rvical spine. 6. 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 7. Evidence of postoperative changes involving the nasal vault extending into the inferior aspect of the sella with fat packing.
[2020-05-19 10:14] LABS: Basophils # 0.1 10^3/uL (0.0-0.1); Basophils % 0.6 %; Eosinophils # 0.3 10^3/uL (0.0-0.8); Eosinophils % 2.3 %; Hematocrit 34.2 % (37.0-47.0); Hemoglobin 10.5 g/dL (11.5-15.3); Lymphocytes # 1.4 10^3/uL (0.8-4.8); Lymphocytes % 12.9 %; Mean Corpuscular HGB Conc 30.7 g/dL (30.0-36.0); Mean Corpuscular Hemoglobin 29.7 pg (28.0-34.0); Mean Corpuscular Volume 96.9 fL (81-99); Mean Platelet Volume 9.6 fL (7.4-10.4); Monocytes # 0.7 10^3/uL (0.2-0.9); Monocytes % 6.5 %; Neutrophils # 8.6 10^3/uL (1.8-7.7); Neutrophils % 77.4 %; Nucleated Red Blood Cells % 0 %; Platelet Count 520 10^3/cmm (130-400); Red Blood Count 3.53 10^6/uL (4.1-5.3); Red Cell Distribution Width 14.9 % (12.1-15.1); White Blood Count 11.1 10^3/uL (4.0-10.0)
[2020-05-19 10:36] LABS: Alanine Aminotransferase 17 U/L (0-33); Albumin Level 3.9 g/dL (3.5-5.2); Alkaline Phosphatase 88 IU/L (35-105); Anion Gap 18.2 (5-19); Aspartate Amino Transferase 28 U/L (0-32); Blood Urea Nitrogen 8 mg/dL (8-23); Calcium 9.7 mg/dL (8.5-10.5); Carbon Dioxide 27 mmol/L (22-29); Chloride 102 mmol/L (98-107); Globulin 2.9 g/dL (1.3-4.6); Glomerular Filtration Rate 100.6 mL/min (90-130); Glucose 133 mg/dL (65-115); Osmolality Calculated 294 mOsm/kg (285-295); Potassium 4.2 mmol/L (3.5-5.1); Sodium 143 mmol/L (136-145); Total Bilirubin 0.2 mg/dL (0.15-1.2); Total Protein 6.8 g/dL (6.6-8.7)
--- NOTE | 2020-05-19 19:44 | ONC CON_ITS ---
Dr. Galeana New Patient Note Patient: Silva Aj Unit #: [id number]: 1955 Dicatated By: Blaine Galeana M.D.Date of Visit: May 19, 2020 Onc MED New Patient/Consult Referring Physician: Kendrick Simpson Chief Complaint: Breast cancer. History of Present Illness: This is a 64 year-old woman with grade 1 infiltrating ductal carcinoma of the right breast, originally staged as IIIC (T1c, pN3, M0), ER/HI positive and HER-2/iris negative. She now has progressed to stage IV (M1), with multiple sites of bone involvement and suspected leptomengingeal involvment. She had presented in 2000 with a right breast lump in the setting of longstanding fibrocystic disease. Her mammogram was suspicious. On 02/19/2001 she underwent lumpectomy with axillary lymph node dissection. Pathology showed grade 1 infiltrating ductal carcinoma measuring 1.1 x 1.0 cm. There was involvement in 11 of 19 axillary lymph nodes. The tumor was ER/HI positive and HER-2/iris negative. She was given adjuvant chemotherapy with 6 cycles of Adriamycin/cyclophosphamide, which she completed in June of 2001. She was then given radiation to the right breast and she received 5 years of adjuvant tamoxifen. She continued extended hormonal therapy with Femara, beginning in May of 2006. It was stopped in May 2008 because of multiple side effects, most significantly joint pain. She restarted treatment with Aromasin in October of 2008, but she also tolerated it poorly and stopped treatment as of March of 2009. She was then followed on observation/expectant management. I had last seen her in November 2012. At that time there was no evidence of recurrence of her breast cancer. On 04/28/2020 she was admitted to the hospital with acute encephalopathy. She had been experiencing personality and memory changes for several weeks, and then she abruptly became overtly confused, prompting her to be taken to the emergency room. She initially began empiric antibiotic coverage for suspected meningitis, but on a CT angiogram of the head she was noted to have a destructive lytic skull based mass position predominantly to the left of the midline at the upper level of the clivus and adjacent sphenoid bone. It measured 1.7 x 1.7 x 2.4 cm. There was overall abnormal heterogeneous appearance of bone density throughout the calvarium with small intermixed areas of lucency and possible small areas of sclerosis, suspicious for diffuse osseous neoplastic process. She was transferred to the [facility] for further management. Her lumbar puncture on 04/29/2020 showed positive CSF cytology for metastatic carcinoma, AE1/AE3 positive. Her brain MRI on 05/01/2020 showed enhancing 1.9 cm left clival mass extending to the level of the pituitary gland. Multiple small enhancing lesions within the calvarium appeared consistent with metastases. There was no parenchymal enhancing lesion. Her PET/CT on 05/02/2020 showed innumerable sclerotic metastatic lesions throughout the axial and visualized proximal appendicular skeleton. The most intense focus was in the L3 vertebral body. There were no other areas of suspicious FDG uptake. On 05/04/2020 she underwent needle biopsy of the L3 vertebral body. Pathology was showed metastatic carcinoma consistent with breast primary, ER negative at < 1% and HI negative. On 05/05/2020 she underwent transsphenoidal resection of the clival mass. Pathology again showed metastatic carcinoma consistent with breast primary, again with ER negative < 1% and HI negative. HER-2/iris analysis was reportedly sent out, but with results pending. She had successful recovery following the surgery, and she was discharged home on 05/12/2020. She is seen now for further management of the breast cancer. She has had quite a remarkable improvement compared to her presurgical condition. She now has returned to baseline mental status, and she is ambulatory. She complains that her legs are weak and she does not get up and around very much. Her ECOG score is 3. Her appetite is better than it was. She has had some weight loss. She does not have fever, night sweats, or hot flashes. She has been having headaches, particularly when she leans forward. She also has been aware of visual changes with intermittent dark places in her visual field. She has noticed that her right hand gets numb and tingly. She has been having pain in the back of her head and in her neck. It radiates into the shoulders. She also has been having some pain in her left arm. She was having some difficulty breathing due to her nose being stopped up, but that is getting better now. She has not had cough, and she does not complain of chest pain. She had been having loose stools and bowel incontinence, but her bowel function now is getting back to normal. She has no other GI or complaints. She has had anxiety/depression, but that is being managed adequately with medication. Past Medical History: Her medical history includes anxiety/depression, degenerative arthritis, history of iron deficiency anemia, hyperlipidemia, hypothyroidism, osteoporosis, and breast cancer. Past Surgical History: She underwent biopsy of the L3 vertebral body on 05/04/2020 and she underwent reasreon 05/05/2020. Her other surgical/procedural includes t right breast biopsy in 2011, hysterectomy with bilateral salpingo-oophorectomy in 2010, right breast lumpectomy with axillary lymph node sampling in 2000, tubal ligation in 1992, excision benign breast lesion in 1989, and D&C in 1969. Medications: CeleXA 1 Tablet (of 20 mg) Oral daily, Diclofenac Sodium 1 (75 mg) Tablet, enteric coated Oral b.i.d., Fish Oil 2 (1000 mg) Capsule Oral b.i.d., Flonase 2 puff(s) (of 50 mcg/act) Suspension Nasal daily, Gabapentin 1 - 2 Capsule (of 300 mg) Oral at bedtime, Levothyroxine Sodium 1 Tablet (of 50 mcg) Oral daily, TH Arthritis Pain Relief 1 - 2 Tablet (of 500 mg) Tablet, controlled release Oral q 4 to 6 hours PRN, traMADol HCl 1 Tablet (of 50 mg) Oral four times a day PRN, Vitamin C 1 (500 mg) Tablet Oral daily PRN Allergies: Atorvastatin Calcium, naproxen, Penicillin V Potassium, and sulfa. Social History: Ms. Aj is . She is a non-smoker. She does not drink alcohol. Family History: Her father had coronary artery disease. He in a motor vehicle accident at age 85. Mother in her sleep, also at age 85. A sister with suspected heart disease at age 65. Review Of Symptoms: Constitutional - She is feeling very weak. She has little to no energy. She is mainly sitting at home. Her appetite has improved. Her weight is down a few pounds. No fever, night sweats, or hot flashes. ECOG score is 3, Eyes - She reports visual changes, ENMT - She has sinus congestion/drainage. No mouth sores. No sore throat or difficulty swallowing, Hematologic/Lymphatic - No abnormal bruising or bleeding, Respiratory - No shortness of breath. No cough. No pleuritic pain or hemoptysis, Cardiovascular - No angina pain. No palpitations, Gastrointestinal - No nausea or vomiting. No heartburn or acid reflux. She was having loose stools and bowel incontinence, but it has improved. No constipation. No blood in the stool or black stools, Genitourinary (F) - No dysuria or hematuria. No urinary frequency. No urgency or incontinence, Musculoskeletal - She has pain in the back of her head and in her neck radiating into the shoulders. She has had arthritis pain in her hands, Integumentary - No skin complications, Neurologic - She has been having headaches for quite sometime. She is having dizziness with positional changes. She also reports some difficulty with her equilibrium. She has numbness and tingling in her right hand. No other focal neurologic symptoms, Psychiatric - No anxiety or depression. She is taking Melatonin for sleep. Vital Signs: Performed on May 19, 2020 08:22: 0, 22.41, 1.51 sq.m, 61.00 in, 99 %, 79 /min, 16 /min, 103/59 mm(hg), 98.3 F (LOW), 118.6 lbs (LOW), and Performed on Nov 26, 2012 14:49: 0. Physical Examination: Constitutional - She appears somewhat weak generally, but not acutely ill, Eyes - Sclerae nonicteric. Conjunctivae clear, ENMT - No lesions noted in the oral cavity, Neck - No mass or thyromegaly, Hematologic/Lymphatic - No cervical or clavicular adenopathy, Respiratory - Lungs are clear with good air movement bilaterally, Cardiovascular - Heart rhythm is regular. There is no murmur, gallop, or rub noted, Breasts - Both breasts have mutliple areas of nodularity, which is chronic. There are no suspicious masses noted. There is no axillary adenopathy, Abdomen - Soft and non-tender. Liver and spleen are not enlarged. There is no abdominal mass or ascites noted and there is no inguinal adenopathy, Back/Spine - No spine or CVA tenderness noted, Extremities - No edema. Pedal pulses are palpable bilaterally, Integumentary - No rashes. No suspicious skin lesions noted, Neurologic - She is somewhat weak generally, but her mental status appears normal, and she has no focal neurologic deficit. Impression: 1. Patient with stage IV breast cancer with biopsy-proven bone involvement, ER/HI negative and HER-2/iris pending. 2. She had associated clival mass, for which she underwent surgical resection by transsphenoidal approach on 05/05/2020. 3. She has positive CSF cytology for metastatic carcinoma, consistent with leptomeningeal involvement. 4. She has prior history of grade 1 infiltrating ductal carcinoma of the right breast treated in 2000 with lumpectomy/ALND, adjuvant chemotherapy, and radiation. That tumor was ER/HI positive and HER-2/iris negative. She received adjuvant hormonal therapy with 5 years of tamoxifen and a total of 3 years of AI. Her other medical illnesses include: 5. Hyperlipidemia. 6. Hypothyroidism. 7. Degenerative arthritis. 8. Osteoporosis. 9. Anxiety/depression. Plan: The findings on the imaging studies and the pathology results were reviewed with the patient and her . We discussed the clinical implications. She now has metastatic breast cancer. There is no clinical evidence of a new primary malignancy, but this tumor is ER/HI negative. The results of the HER-2/iris analysis are still pending. At least initially she will need to see the radiation oncologist for cranial radiation, and that is being set up for Saturday. In the meantime, I will try and get a repeat MRI of the head and MRI of the cervical spine today. At some point she will need to see the neurologist for discussion of intrathecal chemotherapy, and I will plan to arrange that with Dr. Kay. Her further systemic therapy will depend on the results of the HER-2/iris analysis and, if available, results of next generation sequencing, including PD-L1 assessment. They are advised, though, that the overall prognosis with leptomeningeal cancer is poor. She will have baseline laboratory studies today, and I will have her start dexamethasone 4 mg twice daily in preparation for radiation. Signed By: Blaine Galeana M.D. <<Signature on File>>
[2020-05-20 12:19] LABS: CA 27.29 28 U/mL (<38)
== END 2020-05-19 08:10 | disposition home or self-care (01) ==
LOC: ONCMED 08:09
PROVIDERS: PCP Family Medicine; Visit Provider Internal Medicine Medical Oncology
DX: C50.411 Malignant neoplasm of upper-outer quadrant of right female breast (principal); Z17.0 Estrogen receptor positive status [ER+]; C79.32 Secondary malignant neoplasm of cerebral meninges; C79.51 Secondary malignant neoplasm of bone; D50.9 Iron deficiency anemia, unspecified; E78.5 Hyperlipidemia, unspecified; M15.9 Polyosteoarthritis, unspecified; M81.0 Age-related osteoporosis without current pathological fracture; F41.9 Anxiety disorder, unspecified; F32.9 Major depressive disorder, single episode, unspecified; E03.9 Hypothyroidism, unspecified
CPT/HCPCS: 36415; 70553; 72156; 80053; 85025; 86300; 99215; A9579

== ENCOUNTER 2020-05-29 19:20 | Inpatient (IN) | payer BC, SELFPAY ==
[2020-05-29] VITALS (7 sets, daily range): BP systolic 97–116; BP diastolic 67–85; PULSE 65–105; RESP 16–20; TEMP 36.6; O2SAT 90–96; BMI 20.3
--- NOTE | 2020-05-29 19:33 | CTR_ITS ---
PROCEDURE INFORMATION: Exam: CT Head Without Contrast Exam date and time: 05/29/2020 8:09 PM Age: 64 years old Clinical indication: Other: Seizure; Additional info: Sz TECHNIQUE: Imaging protocol: Computed tomography of the head without contrast. Radiation optimization: All CT scans at this facility use at least one of these dose optimization techniques: automated exposure control; mA and/or kV adjustment per patient size (includes targeted exams where dose is matched to clinical indication); or iterative reconstruction. COMPARISON: CT head wo con* [id number] 04/29/2020 10:22 AM RADIATION DOSE METRICS: Total DLP (mGy-cm): 705.79 FINDINGS: Brain: There is volume loss and periventricular low density compatible with chronic small vessel disease changes. Subtle soft tissue density overlying the frontal convexity is noted similar to the prior MRI where there was leptomeningeal spread of disease. There is no new/acute hemorrhage, edema or mass effect. Previously visualized subdural hemorrhage is no longer identified. Ventricles: The ventricles are slightly more dilated than the prior exam concerning for diffuse mild hydrocephalus. For example the transverse measurement the 3rd ventricle today measures 12 mm where previously it measured 11 mm. The transverse measurement of the body of the left lateral ventricle measures 20 mm today image 30 where previously it measured 17 mm. Bones/joints: Diffuse metastatic disease of the calvarium is noted with lytic and sclerotic lesions that appear unchanged compared to the prior exam. Unchanged lytic lesion involving the posterior sphenoid bone/posterior sella. The Sinuses: Visualized sinuses are unremarkable. No fluid levels. Mastoid air cells: Visualized mastoid air cells are well aerated. Soft tissues: Unremarkable. CT/CT head wo con* [id number] IMPRESSION: 1. Mild increase in diffuse hydrocephalus compared to the prior exam. 2. No acute hemorrhage, edema or mass effect. Probable leptomeningeal thickening is unchanged. Stable bony metastatic disease and bony destruction at the skull base. Radiation Dose CTDIVOL = (mGy): DLP = 705.79 (mGy-cm)
--- NOTE | 2020-05-29 19:33 | XR_ITS ---
WS: [id number] CHEST XRAY TECHNIQUE: Portable chest. CLINICAL INFORMATION: sz COMPARISON: April 30, 2020 FINDINGS: Heart: Normal cardiac silhouette. Lungs: Moderate chronic emphysematous changes. No acute pulmonary infiltrates. No focal pneumonia. Bones: Normal visualized bony structures. XR/XR chest 1V portable [id number] IMPRESSION: No acute chest findings
--- NOTE | 2020-05-29 19:34 | ECG_ITS ---
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 Measurements Intervals [place] Rate: 108 P: 73 SC: 128 QRS: 45 QRSD: 75 T: 81 QT: 297 QTc: 398 Interpretive Statements SINUS TACHYCARDIA LEFT VENTRICULAR HYPERTROPHY AND ST-T CHANGE [VOLTAGE CRITERIA PLUS ST/T ABNORMALITY] Compared to ECG 04/28/2020 23:09:27 Left ventricular hypertrophy now present ST (T wave) deviation now present Atrial fibrillation no longer present T-wave abnormality no longer present Electronically Signed On 05-30-2020 16:37:30 CDT by Mitesh Zaldivar M.D. [id number]
[2020-05-29 20:14] LABS: Basophils # 0.1 10^3/uL (0.0-0.1); Basophils % 0.4 %; Hematocrit 41.1 % (37.0-47.0); Hemoglobin 12.8 g/dL (11.5-15.3); Lymphocytes # 1.4 10^3/uL (0.8-4.8); Lymphocytes % 4.6 %; Mean Corpuscular HGB Conc 31.1 g/dL (30.0-36.0); Mean Corpuscular Hemoglobin 30.5 pg (28.0-34.0); Mean Corpuscular Volume 97.9 fL (81-99); Mean Platelet Volume 9.8 fL (7.4-10.4); Monocytes # 1.1 10^3/uL (0.2-0.9); Monocytes % 3.4 %; Neutrophils # 28.34 10^3/uL (1.8-7.7); Neutrophils % 90.5 %; Nucleated Red Blood Cells % 0 %; Platelet Count 490 10^3/cmm (130-400)
[2020-05-29] MEDS: sodium chloride 0.9% 1,000 ML 999 ML IV (20:15)
[2020-05-29] MEDS: ondansetron 2 mg/ML SDV 2 mL 4 MG IVP (20:20)
[2020-05-29 20:30] LABS: Alanine Aminotransferase 38 U/L (0-33); Albumin Level 3.6 g/dL (3.5-5.2); Alkaline Phosphatase 130 IU/L (35-105); Aspartate Amino Transferase 33 U/L (0-32); Blood Urea Nitrogen 25 mg/dL (8-23); C Reactive Protein 3.4 mg/L (0.0-4.9); Carbon Dioxide 21 mmol/L (22-29); Chloride 95 mmol/L (98-107); Creatine Phosphokinase 38 U/L (26-192); Globulin 2.8 g/dL (1.3-4.6); Glomerular Filtration Rate 100.6 mL/min (90-130); Glucose 155 mg/dL (65-115); Magnesium 2.8 mg/dL (1.7-2.3); Osmolality Calculated 272 mOsm/kg (285-295); Phosphorus 4.4 mg/dL (2.5-4.5); Sodium 131 mmol/L (136-145); Total Bilirubin 0.3 mg/dL (0.15-1.2); Total Protein 6.4 g/dL (6.6-8.7); White Blood Count 31.3 10^3/uL (4.0-10.0)
--- NOTE | 2020-05-29 20:30 | PC.NURSE ---
WBC 31.3
[2020-05-29 20:31] LABS: Lactate (Lactic Acid level) 2.7 mmol/L (0.5-2.2)
[2020-05-29 20:34] LABS: Acetaminophen < 5.0 ug/mL (10-30); Salicylate < 0.3 mg/dL (3-10)
[2020-05-29 20:49] LABS: Troponin(5th) Baseline 19 ng/L (0-10)
--- NOTE | 2020-05-29 20:54 | CTR_ITS ---
PROCEDURE INFORMATION: Exam: CT Abdomen And Pelvis With Contrast Exam date and time: 05/29/2020 9:07 PM Age: 64 years old Clinical indication: Abdominal pain; Additional info: Abd pain, diarrhea leukocytosis TECHNIQUE: Imaging protocol: Computed tomography of the abdomen and pelvis with intravenous contrast. Radiation optimization: All CT scans at this facility use at least one of these dose optimization techniques: automated exposure control; mA and/or kV adjustment per patient size (includes targeted exams where dose is matched to clinical indication); or iterative reconstruction. Contrast material: OMNI 300; Contrast volume: 75 ml; Contrast route: INTRAVENOUS (IV); COMPARISON: CT abdomen pelvis w con* [id number] 04/29/2020 2:48 AM RADIATION DOSE METRICS: Total DLP (mGy-cm): 457.86 FINDINGS: Tubes, catheters and devices: A balloon bladder catheter is present. Lungs: There is subpleural atelectasis of the dependent portions of the lungs. Heart: There is a small amount of pericardial fluid. Liver: Unremarkable.No mass. Gallbladder and bile ducts: There is mild intrahepatic biliary duct dilatation. The gallbladder is normal. There is no common bile duct dilation. Pancreas: Normal. No ductal dilation. Spleen: Normal. No splenomegaly. Adrenals: Normal. No mass. Kidneys and ureters: There is no evidence of renal calcifications. Probable bilateral extrarenal pelves are noted. There is a 2.5 cm midpole simple cyst in the left kidney. Stomach and bowel: There is diffuse small bowel wall thickening, consistent with infectious, ischemic, or inflammatory enteritis. There is diffuse wall thickening in the colon compatible with colitis greatest involving the descending colon. Appendix: A normal appendix is identified. Intraperitoneal space: There is a small amount of fluid in the pelvis. No abscess or free air. Vasculature: Unremarkable.No abdominal aortic aneurysm. Lymph nodes: Unremarkable.No enlarged lymph nodes. Bladder: The bladder is collapsed. Reproductive: Unremarkable as visualized. Bones/joints: There is extensive diffuse sclerotic bony metastatic disease unchanged since the prior exam. Unchanged probable pathologic fracture of L3 is noted. No new bony abnormality is identified. Soft tissues: There is a fat-containing umbilical hernia. There is a fat-containing umbilical hernia. Other findings: Calcified granulomas are noted. CT/CT abdomen pelvis w con* [id number] IMPRESSION: 1. There is diffuse small bowel wall thickening, consistent with infectious, ischemic, or inflammatory small bowel enteritis. 2. There is diffuse wall thickening in the colon compatible with colitis greatest involving the descending colon. 3. Unchanged diffuse bony metastatic disease with chronic appearing pathologic fracture of L3. COMMENTS: Consistent with the [place]'s Incidental Findings Committee white paper (J Am Lidia Radiol 2018): Any incidental renal lesion less than 1.0 cm or classified as too small to characterize, or any incidental cystic renal lesion characterized as simple-appearing, is likely benign. No follow-up imaging is recommended for these lesions per consensus recommendations based on imaging criteria. Radiation Dose CTDIVOL = (mGy): DLP = 457.86 (mGy-cm)
--- NOTE | 2020-05-29 21:34 | ECG_ITS ---
[facility] Test Date: 2020-05-29 Pat Name: Silva Aj Department: Room: Gender: Female Business Services Officer: : 1955 Requested By: Vinicius Schofield Order Number: [id number] Rodrigo MD: Mitesh Zaldivar M.D. Measurements Intervals [place] Rate: 79 P: 72 ID: [id number] QRS: 33 QRSD: 75 T: 73 QT: 353 QTc: 405 Interpretive Statements SINUS RHYTHM WITH MARKED SINUS ARRHYTHMIA NONSPECIFIC T-WAVE ABNORMALITY Compared to ECG 05/29/2020 20:13:02 T-wave abnormality now present Sinus tachycardia no longer present Left ventricular hypertrophy no longer present ST (T wave) deviation no longer present Electronically Signed On 05-30-2020 16:42:21 CDT by Mitesh Zaldivar M.D. [id number]
[2020-05-29 22:03] LABS: Troponin 5 2HR 18.13 ng/L (0-10); Troponin 5 2HR Delta -0.87 ABS# (0-10)
[2020-05-29] MEDS: iohexol 300 mg/mL 100 mL Btl IV (22:04)
[2020-05-29] MEDS: metroNIDAZOLE IV 500 MG/100 ML PREMIX 100 MG IV (23:07)
[2020-05-29 23:39] LABS: Blood Urine 2+ (Negative); Glucose Urine UA Norm (Normal); Ketones Urine 1+ (Negative); Nitrate Urine Negative (Negative); Protein Urine Trace (Negative); Specific Gravity, Urine 1.015 (1.005-1.030); Urine Appearance Hazy (CLEAR); Urine Color Brown (Yellow); pH Urine 5 (5-7)
[2020-05-29 23:40] LABS: Add Urine Microscopic? YES; Bilirubin Urine 1+ (NEGATIVE); Leukocyte Esterase Urine Trace (Negative); RBC Urine 0-4 /hpf (0-2); Squamous Epithelial Cell Urine 0-4 (0-5); Urobilinogen Urine 4 mg/dL (Negative); WBC Urine 0-4 /hpf (0-5)
[2020-05-29 23:41] LABS: Bacteria Urine 1+; Calcium Oxalate Crystals Urine 15-25 /hpf; Mucus Urine 2+
[2020-05-29 23:42] LABS: Add Urine Culture? No
[2020-05-30] VITALS (11 sets, daily range): BP systolic 91–126; BP diastolic 51–82; PULSE 64–78; RESP 16–20; TEMP 36.4–37; O2SAT 94–99
[2020-05-30] MEDS: ciprofloxacin 400 MG/200 ML PREMIX 200 MG IV (00:15)
[2020-05-30] MEDS: sodium chloride 0.9% 1,000 ML 999 ML IV (01:33)
--- NOTE | 2020-05-30 01:34 | ECG_ITS ---
[facility] Test Date: 2020-05-30 Pat Name: Silva Aj Department: Room: Gender: Female Manager Of Software Development: : 1955 Requested By: Vinicius Schofield Order Number: [id number] Rodrigo MD: Mitesh Zaldivar M.D. Measurements Intervals [place] Rate: 70 P: -9 SD: 138 QRS: 26 QRSD: 88 T: -19 QT: 358 QTc: 388 Interpretive Statements SINUS RHYTHM WITH OCCASIONAL SUPRAVENTRICULAR PREMATURE COMPLEXES Compared to ECG 05/29/2020 21:52:48 Sinus arrhythmia no longer present T-wave abnormality no longer present Electronically Signed On 05-30-2020 16:43:00 CDT by Mitesh Zaldivar M.D. [id number]
--- NOTE | 2020-05-30 01:35 | PM.HP ---
Providers/Chief Complaint Admitting Physician: Socorro Azul Primary Care Provider: Jluis Pickard MD Chief Complaint: post seizure History of Present Illness Silva Aj is a 64 year old female who presented to the emergency room with chief complaint of seizure-like activity. She is an unfortunate lady who has metastatic breast cancer. 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 She is back home now and is undergoing radiation therapy with the plan for 10 palliative radiation treatments. She has completed 5 of those treatments. She started having some vomiting and diarrhea this weekend. Prior to admission she had an episode in which she became weak and more confused and collapsed. She was less responsive afterwards for short period of time. No abnormal movements were noted. Work-up in the emergency room revealed a white count of 31,000. Stool appearance and smell was highly suspicious for C. difficile colitis. Specimen was sent for testing. When patient was hospitalized last she was on antibiotics empirically. does not report any antibiotics in the interim. CT of the abdomen and pelvis further showed findings consistent with colitis with small bowel enteritis. Patient had no episodes of unresponsiveness noted in the ED and is able to answer simple questions and make eye contact. Given her comorbid conditions and episode today, she is being admitted for treatment. History is obtained primarily from and review of records. Review of Systems General: Reports: ROS unobtainable due to mental status (Patient answers no to every question, not reliable historian) Const: Denies: fever(s) GI: Reports: nausea, vomiting and diarrhea; Denies: abdominal pain : Reports: urinary incontinence Neuro: Reports: confusion Medications/Allergies Home Medications Medication Instructions Recorded Confirmed Last Taken Type L. acidophilus 5 mg-digestive cap PO DAILY cap 01/22/20 01/22/20 Unknown History enzymes combo no.5 250 mg capsule ascorbic acid (vitamin C) 125 mg 500 mg PO DAILY tab 01/22/20 01/22/20 Unknown History chewable tablet calcium-vitamin D3-vitamin K 500 1 tab PO TID tab 01/22/20 01/22/20 Unknown History mg-500 unit-40 mcg chewable tablet citalopram 20 mg tablet 20 mg PO DAILY 01/22/20 01/22/20 Unknown History ferrous sulfate 325 mg (65 mg 325 mg PO DAILY 01/22/20 01/22/20 Unknown History iron) tablet gabapentin 300 mg capsule 600 mg PO DAILY cap 01/22/20 01/22/20 Unknown History levothyroxine 50 mcg capsule 50 mcg PO DAILY 01/22/20 01/22/20 Unknown History lorazepam 0.5 mg tablet 0.5 mg PO .At Bedtime tab 01/22/20 01/22/20 Unknown History multivitamin 1 tab PO DAILY 01/22/20 01/22/20 Unknown History omega-3 fatty acids 500 mg capsule 500 mg PO DAILY 01/22/20 01/22/20 Unknown History pravastatin 10 mg tablet 10 mg PO DAILY 01/22/20 01/22/20 Unknown History tramadol 50 mg tablet 50 mg PO QID tab 01/22/20 01/22/20 Unknown History Allergies Allergy/AdvReac Type Severity Reaction Status Date / Time atorvastatin [From Lipitor] Allergy Mild Muscle pain Verified 01/22/20 14:07 Penicillins Allergy Mild Hives, rash Verified 01/22/20 14:07 naproxen Allergy Unsure Verified 01/22/20 14:07 PFSH Acute PFSH: Medical History (Updated 05/30/20 @ 08:28 by Socorro Azul MD) Anxiety with depression History of invasive ductal carcinoma of breast Right breast infiltrating ductal carcinoma. 02/2001 Primary tumor 1 cm, lumpectomy, axillary node dissection; ER/UT (+),HER2/iris (-). 2000 chemotherapy, followed by radiation, Tamoxifen ?5 years; Femara until 2008 -04/2020 found to have ER negative metastatic disease c/w breast primary. Started palliative radiation 06/06 Hyperlipidemia Hypothyroidism (acquired) Prolapse of vaginal wall with midline cystocele Surgical History (Updated 05/30/20 @ 08:10 by Socorro Azul MD) H/O breast biopsy H/O dilation and curettage 1969's for persistent spotting. H/O lumpectomy (~02/19/01) --1983 right breast --02/19/2001 Right side; Carcinoma Lymph nodes taken H/O thumb surgery (~2006) Repair of right thumb trigger finger in May and left thumb trigger finger in June 2007. H/O tubal ligation (~11/15/93) H/O vaginal surgery (~08/07/11) preoperative diagnosis was a cystocele-grade 2. On examination under anesthesia there was a 2 x 2 centimeter mass noted in the vaginal cuff and as a result cystocele repair was not done and wide local excision of this vaginal mass was performed by Dr. Santamaria assisted by Dr. Dr. Torrez. -Pathology of this showed granulation tissue. H/O: hysterectomy (~02/22/11) total vaginal hysterectomy with bilateral salpingo-oophorectomy and uterosacral ligament was distention, cystoscopy done for uterovaginal prolapse and cystocele. Surgery was performed by Dr. Santamaria and Dr. Dr. Torrez. Once vault suspension was performed cystocele was reduced and no cystocele repair was done. Pathology was benign with atrophic ovaries. History of surgery (~04/2020) clival mass excision, L3 biopsy, lumbar puncture with CSF cytology Family History Father Heart disease Diabetes Hyperlipidemia Hypertension Family/Other Heart disease Paternal aunt x2 Paternal uncle x 1 Grandfather Heart disease Paternal grandfather Mother Hyperlipidemia Family history of thyroid problem Stroke Grandmother Cancer, Onset Age: 80 [employer]- BREAST CA Social History Smoking and tobacco status: never smoked Alcohol intake: never Household members: family Housing: House Vitals/I&O/Wt Last Vital Signs Temp 97.8 F 05/29/20 19:24 Pulse 88 05/29/20 20:30 Resp 20 H 05/29/20 20:30 BP 97/72 05/29/20 20:30 Pulse Ox 95 05/29/20 20:30 Weight last 48 hrs Weight 52.163 kg Physical Exam Const: OTHER: Patient asleep, easily arousable, smiles, answers no to nearly every question but follows simple commands HENMT: OTHER: Dry mucous membranes Eye: OTHER: Pupils are reactive bilaterally, extraocular movements are intact Neck/C-Spine: OTHER: Supple, no thyromegaly or lymphadenopathy Resp: OTHER: Clear to auscultation bilaterally, no rales, rhonchi or wheezes noted, no accessory muscle use noted Cardio: OTHER: Regular rate and rhythm, no murmurs gallops or rubs. Pulses equal throughout GI: OTHER: Abdomen soft, mild distention, mild tenderness throughout but no rebound or guarding, has a little facial grimace, positive bowel sounds : OTHER: Campo catheter noted Extremity: NARRATIVE EXTREMITY EXAM: No pitting edema though somewhat doughy Neuro: OTHER: Speech clear though soft, moves all extremities, no abnormal movements Psych: OTHER: Flat affect but very pleasant oriented to person and I do believe to place though not entirely to situation, date or time Skin: OTHER: Very pale, rashes Urinary Catheter Management^: Camp[place]: Cath Placed During This Visit: yes Urinary Catheter Date of Insertion: 05/29/20 Urinary Catheter Time of Insertion: 21:00 Data : 05/29/20 20:10 05/29/20 20:10 Other Labs: Laboratory Tests 05/29/20 05/29/20 05/29/20 20:10 20:10 20:10 Lactate 2.7 H Calcium 10.0 Phosphorus 4.4 Magnesium 2.8 H C-Reactive Protein 3.4 Liver Function 05/29/20 Range/Units 20:10 Total Bilirubin 0.3 (0.15-1.2) mg/dL AST 33 H (0-32) U/L ALT 38 H (0-33) U/L Alkaline Phosphatase 130 H (35-105) IU/L Albumin 3.6 (3.5-5.2) g/dL Urine 05/29/20 Range/Units 21:00 Urine Color Brown (Yellow) Urine Appearance Hazy A (CLEAR) Urine pH 5 (5-7) Ur Specific [place] 1.015 (1.005-1.030) Urine Protein Trace (Negative) Urine Glucose (UA) Norm (Normal) CT Abd/Pel: Radiologist's impression: IMPRESSION: 1. There is diffuse small bowel wall thickening, consistent with infectious, ischemic, or inflammatory small bowel enteritis. 2. There is diffuse wall thickening in the colon compatible with colitis greatest involving the descending colon. 3. Unchanged diffuse bony metastatic disease with chronic appearing pathologic fracture of L3. CT Head: Radiologist's impression: IMPRESSION: 1. Mild increase in diffuse hydrocephalus compared to the prior exam. 2. No acute hemorrhage, edema or mass effect. Probable leptomeningeal thickening is unchanged. Stable bony metastatic disease and bony destruction at the skull base. A&P Assessment and plan (1) Episode of syncope: Feels secondary to C. difficile colitis and associated volume depletion symptoms Status: Acute Qualifiers: Syncope type: unspecified Qualified Code(s): R55 - Syncope and collapse (2) Colitis: Strongly suspect C. difficile colitis based on's odor and appearance of stool but with recent radiation therapy do have to keep in mind the possibility of radiation induced enterocolitis Status: Acute (3) Metastatic breast cancer: Currently undergoing palliative radiation therapy and was due to have session Saturday On dexamethasone Status: Acute (4) History of invasive ductal carcinoma of breast: With poor prognosis, likely less than 6 months to live Status: Acute (5) Hypothyroidism (acquired): Chronically on levothyroxine Status: Chronic (6) Hyperlipidemia: Chronically on statin Status: Chronic Qualifiers: Hyperlipidemia type: unspecified Qualified Code(s): E78.5 - Hyperlipidemia, unspecified (7) Depression: Chronically on citalopram Status: Acute Qualifiers: Depression Type: unspecified Qualified Code(s): F32.9 - Major depressive disorder, single episode, unspecified Additional A&P Information Inpatient admission IV fluids and electrolyte replacement as needed Oral vancomycin Increase lactobacillus dosing We will give dexamethasone IV secondary to anticipated poor absorption of oral medications We will provide IV pain control along with oral IV Ativan if needed for the time being Hold other home medications presently Soft diet Follow-up official C. difficile testing Antiemetics if needed Will need to touch base with radiation oncology tomorrow to let them know of patient's admission and to determine when and if she can resume radiation Supportive care otherwise Patient remains full code. I talked to her about this and he wants to talk to family and think it over a bit further. He understands the poor prognosis but has not made it to that step just yet. Plans were discussed with Mr. Jeffers and he was given an opportunity to ask questions Attestations Medical Necessity Statement*: Anticipated stay greater than 2 midnights in a patient with metastatic breast cancer now presenting with evidence of C. difficile colitis and some syncope likely related to volume losses plus or minus vasovagal process. Plans are as noted above. Coding Level of Care Code Acute Adult Specialist for Ladan Dorsey Diagnoses Episode of syncope R55 Syncope type: unspecified Colitis K52.9 Metastatic breast cancer C50.919 History of invasive ductal carcinoma of breast Z85.3 Hypothyroidism (acquired) E03.9 Hyperlipidemia E78.5 Hyperlipidemia type: unspecified Depression F32.9 Depression Type: unspecified
--- NOTE | 2020-05-30 02:32 | ED_ITS ---
HPI - Syncope General: Chief Complaint: Seizure Stated Complaint: post seizure Time Seen by Provider: 05/29/20 19:24 History of Present Illness: HPI narrative: 64-year-old lady with a history of metastatic breast cancer, stage IV. She has metastatic disease to her brain, skull, lumbar spine and belly. She is received 5 radiation treatments, noted to be palliative, in the last 5 days. She presents after a period of syncope at home. She had developed some vomiting, and diarrhea at home, and collapsed. She was confused afterwards, but symptoms began to clear a bit decently quickly. Associated symptoms: Reports abdominal pain and nausea; Deny chest pain, fever(s), headache(s) or vertigo Review of Systems Const: Denies: fever(s) or chills Eyes: Denies: change in vision or blurry vision ENMT: Denies: swelling of lips/tongue, epistaxis, post nasal drip or sinus pain Card: Denies: chest pain, palpitations or irregular heart rhythm Resp: Denies: dyspnea, productive cough, non-productive cough or wheezing GI: Reports: abdominal pain, nausea and vomiting; Denies: melena : Denies: dysuria or hematuria Musc: Reports: back pain; Denies: neck pain Skin/Breast: Denies: rash, pruritus or erythema Neuro: Reports: dizziness, confusion and seizure-like activity; Denies: headache(s) or vertigo Psych: Denies: anxiety [facility] ED PFSH: Medical History (Updated 05/30/20 @ 03:40 by Vinicius Kirby DO) Anxiety with depression History of invasive ductal carcinoma of breast Right breast infiltrating ductal carcinoma. 02/2001 Primary tumor 1 cm, lumpectomy, axillary node dissection; ER/[place] (+),HER2/iris (-). 2001 chemotherapy, followed by radiation, Tamoxifen ?5 years; Femara until 2007. Hyperlipidemia Hypothyroidism (acquired) Prolapse of vaginal wall with midline cystocele Surgical History H/O breast biopsy H/O dilation and curettage 1969's for persistent spotting. H/O lumpectomy (~02/19/01) --1983 right breast --02/19/2001 Right side; Carcinoma Lymph nodes taken H/O thumb surgery (~2006) Repair of right thumb trigger finger in May and left thumb trigger finger in June 2007. H/O tubal ligation (~11/15/93) H/O vaginal surgery (~08/07/11) preoperative diagnosis was a cystocele-grade 2. On examination under anesthesia there was a 2 x 2 centimeter mass noted in the vaginal cuff and as a result cystocele repair was not done and wide local excision of this vaginal mass was performed by Dr. Santamaria assisted by Dr. Dr. Torrez. -Pathology of this showed granulation tissue. H/O: hysterectomy (~02/22/11) total vaginal hysterectomy with bilateral salpingo-oophorectomy and uterosacral ligament was distention, cystoscopy done for uterovaginal prolapse and cystocele. Surgery was performed by Dr. Santamaria and Dr. Dr. Torrez. Once vault suspension was performed cystocele was reduced and no cystocele repair was done. Pathology was benign with atrophic ovaries. Family History Father Heart disease Diabetes Hyperlipidemia Hypertension Family/Other Heart disease Paternal aunt x2 Paternal uncle x 1 Grandfather Heart disease Paternal grandfather Mother Hyperlipidemia Family history of thyroid problem Stroke Grandmother Cancer, Onset Age: 80 [employer]- BREAST [place] Social History Smoking and tobacco status: never smoked Alcohol intake: never Household members: family Housing: House Physical Exam Const: GENERAL APPEARANCE: well developed ORIENTATION/CONSCIOUSNESS: Yes oriented to person and Yes oriented to place; not oriented to time HENMT: COMMON NORMALS: normocephalic, external ears normal and Normal external nose present HEAD & SCALP: normocephalic FACE & SINUS: normal facial exam NOSE: Normal external nose present and No nasal discharge present EXTERNAL EAR: Yes external ears normal MOUTH: tongue normal Eye: COMMON NORMALS: Equal, round and reactive pupils present, EOMs intact bilaterally and conjunctivae normal EYELID: eyelids normal CONJUNCTIVA: Yes conjunctivae normal PUPIL: Yes Equal, round and reactive pupils present Neck/C-Spine: GENERAL: No tracheal deviation Chest: COMMONS NORMALS: normal inspection of the chest CHEST: No tenderness Resp: COMMON NORMALS: clear to auscultation bilaterally EFFORT & INSPECT ION: No tachypneic, No respiratory distress, No retractions, No uses accessory muscles and No tracheal deviation AUSCULTATION: clear to auscultation bilaterally, no rhonchi, no wheezes and lung sounds not diminished Cardio: COMMON NORMALS: regular rate and regular rhythm RATE: regular rate RHYTHM: regular rhythm HEART SOUNDS: no murmurs PERIPHERAL PULSES: radial pulses present GI: INSPECTION: Yes abdominal distension AUSCULTATION: Yes Hyperactive bowel sounds present and No Hypoactive bowel sounds present PALPATION: Yes Tenderness to palpation present (GI) (diffuse) and No Rigid due to palpation PERCUSSION: no dullness to percussion and tympanic to percussion Neuro: SENSORIUM/ORIENTATION: Yes oriented to person, Yes oriented to place and No oriented to time Skin: COMMON NORMALS: no rashes or lesions noted GENERAL SKIN EXAM: no rashes or lesions noted Course Vital Signs: Vital signs: Vital Signs Temperature 97.8 F 05/29/20 19:24 Pulse Rate 88 05/29/20 20:30 Respiratory Rate 20 H 05/29/20 20:30 Blood Pressure 97/72 05/29/20 20:30 Pulse Oximetry 95 05/29/20 20:30 MDM - Syncope MDM Narrative: Medical decision making narrative: By history what appears to be a syncopal episode in a patient with metastatic breast cancer, stage IV, to the brain, belly, and some bony structures. She had had vomiting and diarrhea. Her white blood cell count is 31,000. Her platelet count is 490. BUN is 25. Bicarbonate level is 21. CT reveals essentially pancolitis. Her stool is positive for C. difficile. She is received Flagyl here in the ER. Her stools have begun to slow a bit. She is received 2 L IV fluid bolus, as her pressure is been somewhat soft. She does have an elevated lactic acid level. CT of the head reveals an essentially stable brain with metastatic disease. There is potentially slightly more hydrocephalus present. She will be admitted for treatment of the colitis. Hospitalist agrees, and is talked with the family about our limited neurology services and limited inpatient oncology services here. Family agrees to stay. Lab Data: Labs: Lab Results 05/29/20 05/29/20 05/29/20 Range/Units 20:10 20:10 20:10 WBC 31.3 H* (4.0-10.0) 10^3/ uL RBC 4.20 (4.1-5.3) 10^6/u L Hgb 12.8 (11.5-15.3) g/dL Hct 41.1 (37.0-47.0) % MCV 97.9 (81-99) fL MCH 30.5 (28.0-34.0) pg MCHC 31.1 (30.0-36.0) g/dL RDW 15.0 (12.1-15.1) % Plt Count 490 H (130-400) 10^3/c mm MPV 9.8 (7.4-10.4) fL Neut % (Auto) 90.5 % Lymph % (Auto) 4.6 % [place] % (Auto) 3.4 % Eos % (Auto) 0.0 % Baso % (Auto) 0.4 % Neut # (Auto) 28.34 H (1.8-7.7) 10^3/u L Lymph # (Auto) 1.4 (0.8-4.8) 10^3/u L [place] # (Auto) 1.1 H (0.2-0.9) 10^3/u L Eos # (Auto) 0.0 (0.0-0.8) 10^3/u L Baso # (Auto) 0.1 (0.0-0.1) 10^3/u L Nucleated RBC % (a uto) 0 % Nucleated RBCs # 0.0 /100WBC Sodium 131 L (136-145) mmol/L Potassium 4.0 (3.5-5.1) mmol/L Chloride 95 L (98-107) mmol/L Carbon Dioxide 21 L (22-29) mmol/L Anion Gap 19.0 (5-19) BUN 25 H (8-23) mg/dL Creatinine 0.6 (0.5-0.9) mg/dL GFR Calculation 100.6 (90-130) mL/min Glucose 155 H (65-115) mg/dL Calculated Osmolal ity 272 L (285-295) mOsm/k g Lactate 2.7 H (0.5-2.2) mmol/L Calcium 10.0 (8.5-10.5) mg/dL Phosphorus 4.4 (2.5-4.5) mg/dL Magnesium 2.8 H (1.7-2.3) mg/dL Total Bilirubin 0.3 (0.15-1.2) mg/dL AST 33 H (0-32) U/L ALT 38 H (0-33) U/L Alkaline Phosphata se 130 H (35-105) IU/L Creatine Kinase 38 (26-192) U/L Troponin T Baselin e (0-10) ng/L Troponin T 120 Min [place] (0-10) ng/L Delta Troponin T (0-10) ABS# C-Reactive Protein 3.4 (0.0-4.9) mg/L Total Protein 6.4 L (6.6-8.7) g/dL Albumin 3.6 (3.5-5.2) g/dL Globulin 2.8 (1.3-4.6) g/dL Urine Color (Yellow) Urine Appearance (CLEAR) Urine pH (5-7) Ur Specific Gravit y (1.005-1.030) Urine Protein (Negative) Urine Glucose (UA) (Normal) Urine Ketones (Negative) Urine Blood (Negative) Urine Nitrate (Negative) Urine Bilirubin (NEGATIVE) Urine Urobilinogen (Negative) mg/dL Ur Leukocyte Randa ase (Negative) Urine RBC (0-2) /hpf Urine WBC (0-5) /hpf Ur Squamous Epith Cells (0-5) Calcium Oxalate Cr ystal /hpf Amorphous Sediment Urine Bacteria (NONE) Hyaline Casts Urine Mucus Salicylates < 0.3 L (3-10) mg/dL Acetaminophen < 5.0 L (10-30) ug/mL 05/29/20 05/29/20 05/29/20 Range/Units 20:10 21:00 21:41 WBC (4.0-10.0) 10^3/ uL RBC (4.1-5.3) 10^6/u L Hgb (11.5-15.3) g/dL Hct (37.0-47.0) % MCV (81-99) fL MCH (28.0-34.0) pg MCHC (30.0-36.0) g/dL RDW (12.1-15.1) % Plt Count (130-400) 10^3/c mm MPV (7.4-10.4) fL Neut % (Auto) % Lymph % (Auto) % [place] % (Auto) % Eos % (Auto) % Baso % (Auto) % Neut # (Auto) (1.8-7.7) 10^3/u L Lymph # (Auto) (0.8-4.8) 10^3/u L [place] # (Auto) (0.2-0.9) 10^3/u L Eos # (Auto) (0.0-0.8) 10^3/u L Baso # (Auto) (0.0-0.1) 10^3/u L Nucleated RBC % (a uto) % Nucleated RBCs # /100WBC Sodium (136-145) mmol/L Potassium (3.5-5.1) mmol/L Chloride (98-107) mmol/L Carbon Dioxide (22-29) mmol/L Anion Gap (5-19) BUN (8-23) mg/dL Creatinine (0.5-0.9) mg/dL GFR Calculation (90-130) mL/min Glucose (65-115) mg/dL Calculated Osmolal ity (285-295) mOsm/k g Lactate (0.5-2.2) mmol/L Calcium (8.5-10.5) mg/dL Phosphorus (2.5-4.5) mg/dL Magnesium (1.7-2.3) mg/dL Total Bilirubin (0.15-1.2) mg/dL AST (0-32) U/L ALT (0-33) U/L Alkaline Phosphata se (35-105) IU/L Creatine Kinase (26-192) U/L Troponin T Baselin e 19 H (0-10) ng/L Troponin T 120 Min [place] 18.13 H (0-10) ng/L Delta Troponin T -0.87 L (0-10) ABS# C-Reactive Protein (0.0-4.9) mg/L Total Protein (6.6-8.7) g/dL Albumin (3.5-5.2) g/dL Globulin (1.3-4.6) g/dL Urine Color Brown (Yellow) Urine Appearance Hazy A (CLEAR) Urine pH 5 (5-7) Ur Specific Gravit y 1.015 (1.005-1.030) Urine Protein Trace (Negative) Urine Glucose (UA) Norm (Normal) Urine Ketones 1+ H (Negative) Urine Blood 2+ H (Negative) Urine Nitrate Negative (Negative) Urine Bilirubin 1+ H (NEGATIVE) Urine Urobilinogen 4 H (Negative) mg/dL Ur Leukocyte Randa ase Trace H (Negative) Urine RBC 0-4 H (0-2) /hpf Urine WBC 0-4 H (0-5) /hpf Ur Squamous Epith Cells 0-4 H (0-5) Calcium Oxalate Cr ystal 15-25 H /hpf Amorphous Sediment Not Reportable Urine Bacteria 1+ H (NONE) Hyaline Casts 10-15 H Urine Mucus 2+ Salicylates (3-10) mg/dL Acetaminophen (10-30) ug/mL Discharge Plan Discharge Patient Disposition: Admitted As Inpatient Admit Provider: Socorro Azul Clinical Impression: Colitis Episode of syncope Qualifiers: Syncope type: unspecified Qualified Code(s): R55 - Syncope and collapse Condition: Stable Coding Level of Care Code ED Certified Recreational Therapist for [facility] Fwd Exam Comprehensive
[2020-05-30 02:54] LABS: Lactate (Lactic Acid level) 2.7 mmol/L (0.5-2.2)
[2020-05-30 02:55] LABS: Troponin 5 6HR 42.31 ng/L (0-10)
[2020-05-30 02:59] LABS: Troponin 5 6HR Delta 23.31 ng/L (0-12)
--- NOTE | 2020-05-30 04:12 | PC.NURSE ---
i agree with this assessment
--- NOTE | 2020-05-30 04:13 | PC.NURSE ---
IO 225ml
--- NOTE | 2020-05-30 04:55 | PC.NURSE ---
pt incontinent of stool needing to be changed x4. notified
[2020-05-30] MEDS: sodium chlor 0.9% + KCl 20 mEq 20 MEQ/1,000 ML BAG 125 MEQ IV ×2 (05:19→15:36)
--- NOTE | 2020-05-30 07:03 | PM.PN ---
Subjective Subjective: Interval history: Patient is admitted to the hospital for having what family thought was a 1 to 2-minute seizure. Had a postictal state afterwards. She has had some diarrhea for the last several days. She had antibiotics during her last hospitalization. Patient's a bit confused at this time. No fevers or chills. Still having some abdominal pain and diarrhea. Vitals/I&O/Wt Last Vital Signs Temp 97.6 F 05/30/20 04:28 Pulse 64 05/30/20 04:50 Resp 18 05/30/20 04:50 BP 118/82 05/30/20 04:50 Pulse Ox 95 05/30/20 04:50 05/29/20 05/30/20 05/30/20 22:59 06:59 14:59 Output Total 275 / 275 Balance -275 / -275 Weight last 48 hrs Weight 115 lb Physical Exam Narrative: EXAM NARRATIVE: General: No acute distress, Alert. Well nourished. Very confused and not oriented. Heart: Regular rate and rhythm. No murmurs, rubs or gallops. Normal capillary refill. Lungs: Clear to auscultation. No wheezes, rhonchi or rales. Abdomen: Positive bowel sounds. Mildly tender, non-distended. No hepatosplenomegaly. No gaurding. Extremities: No clubbing, cyanosis, or edema. Negative Colby's Urinary Catheter Management^: Camp[place]: Cath Placed During This Visit: yes Reason for Continuing Indwelling Catheter: Hospice/Comfort/Palliative Care Urinary Catheter Date of Insertion: 05/29/20 Urinary Catheter Time of Insertion: 21:00 Data : 05/31/20 03:07 05/31/20 03:07 A&P Assessment and plan (1) C. difficile colitis: Patient is receiving oral vancomycin. Status: Acute (2) Metastatic breast cancer: Continuing with palliative radiation to the brain. Status: Acute Attestations Medical Necessity Statement*: 64-year-old female with metastatic breast cancer and C. difficile colitis requiring inpatient treatments. Coding Level of Care Code Acute Preforming Machine Operator for Lad[facility] Dorsey Diagnoses C. difficile colitis A04.72 Metastatic breast cancer C50.919
[2020-05-30] MEDS: dexamethasone 4 mg/mL INJ IVP ×2 (08:40→21:01)
[2020-05-30] MEDS: lactobacillus 1 Tablet 4 TAB PO ×2 (10:06→20:54)
[2020-05-31] VITALS: BP 131/73; PULSE 81; RESP 16; TEMP 37.3; O2SAT 98
[2020-05-31 03:58] LABS: Basophils % 0.2 %; Hematocrit 27.9 % (37.0-47.0); Hemoglobin 8.8 g/dL (11.5-15.3); Lymphocytes # 0.6 10^3/uL (0.8-4.8); Lymphocytes % 5.2 %; Mean Corpuscular HGB Conc 31.5 g/dL (30.0-36.0); Mean Corpuscular Volume 95.2 fL (81-99); Mean Platelet Volume 10.6 fL (7.4-10.4); Monocytes # 0.4 10^3/uL (0.2-0.9); Monocytes % 3.9 %; Neutrophils # 9.78 10^3/uL (1.8-7.7); Neutrophils % 89.7 %; Nucleated Red Blood Cells % 0 %; Platelet Count 343 10^3/cmm (130-400); Red Blood Count 2.93 10^6/uL (4.1-5.3); Red Cell Distribution Width 15.7 % (12.1-15.1); White Blood Count 10.9 10^3/uL (4.0-10.0)
[2020-05-31 04:00] VITALS: BP 118/69; PULSE 86; RESP 16; TEMP 36.3; O2SAT 99
[2020-05-31 04:14] LABS: Alanine Aminotransferase 19 U/L (0-33); Albumin Level 2.8 g/dL (3.5-5.2); Alkaline Phosphatase 57 IU/L (35-105); Anion Gap 12.2 (5-19); Aspartate Amino Transferase 21 U/L (0-32); Blood Urea Nitrogen 10 mg/dL (8-23); Calcium 8.1 mg/dL (8.5-10.5); Carbon Dioxide 23 mmol/L (22-29); Chloride 108 mmol/L (98-107); Globulin 1.7 g/dL (1.3-4.6); Glomerular Filtration Rate 160.7 mL/min (90-130); Glucose 129 mg/dL (65-115); Osmolality Calculated 286 mOsm/kg (285-295); Phosphorus 2.9 mg/dL (2.5-4.5); Potassium 4.2 mmol/L (3.5-5.1); Sodium 139 mmol/L (136-145); Total Bilirubin 0.3 mg/dL (0.15-1.2); Total Protein 4.5 g/dL (6.6-8.7)
[2020-05-31] MEDS: sodium chlor 0.9% + KCl 20 mEq 20 MEQ/1,000 ML BAG 125 MEQ IV ×2 (04:40→16:11)
--- NOTE | 2020-05-31 07:24 | P.PN_ITS ---
Subjective Subjective: Interval history: No witnessed seizures. She is a bit more confused today. Had extensive conversation with her . They feel like she is having some seizures at home. Her condition has waxed and waned over the past few weeks. Their goal is to finish out 3 more treatments of radiation and have home health. After the radiation is done they help to transition to ospice care at that time. She continues to have some diarrhea.. Vitals/I&O/Wt Last Vital Signs Temp 99.0 F 06/01/20 04:00 Pulse 57 L 06/01/20 04:00 Resp 20 H 06/01/20 04:00 BP 126/69 06/01/20 04:00 Pulse Ox 100 06/01/20 04:00 05/31/20 06/01/20 06/01/20 22:59 06:59 14:59 Intake Total 240 / 2341.25 981.25 / 2341.25 Output Total 0 / 1300 1300 / 1300 Balance 240 / 1041.25 -318.75 / 1041.25 Physical Exam Narrative: EXAM NARRATIVE: General: No acute distress, Alert. Well nourished. Very confused and not oriented. Heart: Regular rate and rhythm. No murmurs, rubs or gallops. Normal capillary r efill. Lungs: Clear to auscultation. No wheezes, rhonchi or rales. Abdomen: Positive bowel sounds. Mildly tender, non-distended. No hepatospleno megaly. No gaurding. Extremities: No clubbing, cyanosis, or edema. Negative Colby's Urinary Catheter Management^: Camp[place]: Cath Placed During This Visit: yes Reason for Continuing Indwelling Catheter: Hospice/Comfort/Palliative Care Urinary Catheter Date of Insertion: 05/29/20 Urinary Catheter Time of Insertion: 21:00 Data : 05/31/20 03:07 05/31/20 03:07 A&P Assessment and plan (1) C. difficile colitis: Patient is receiving oral vancomycin. Still continued to have some diarrhea. Labs have improved some though Status: Acute (2) Metastatic breast cancer: Continuing with palliative radiation to the brain. Status: Acute (3) Seizures: Due to metastatic disease. We will start Keppra today. Status: Acute Attestations Medical Necessity Statement*: 64-year-old female with metastatic breast cancer and C. difficile colitis requiring continued inpatient treatment Coding Level of Care Code Acute High Heel Builder for Chg Fwd Diagnoses C. difficile colitis A04.72 Metastatic breast cancer C50.919 Seizures R56.9
[2020-05-31 07:47] VITALS: BP 144/74; PULSE 60; RESP 18; TEMP 36.8; O2SAT 100
[2020-05-31] MEDS: dexamethasone 4 mg/mL INJ IVP ×2 (08:07→20:48)
[2020-05-31] MEDS: lactobacillus 1 Tablet 4 TAB PO ×3 (08:33→20:47)
[2020-05-31 12:00] VITALS: BP 140/70; PULSE 60; RESP 16; TEMP 36.7; O2SAT 100
[2020-05-31 16:00] VITALS: BP 125/59; PULSE 81; RESP 16; TEMP 37.1; O2SAT 93
[2020-05-31] MEDS: levETIRAcetam 500 mg Tablet 1000 MG PO (17:53)
--- NOTE | 2020-05-31 18:40 | PC.NURSE ---
pt had emesis after receiving oral vancomycin 2.5ml and keppra 1,000mg. the pt then wanted in the chair and out of the bed, pt stated she had no more nausea after emesis which she believed was due to vancomycin. pt has continued to be confused with only being able to state name and not or being able to state where she was. Pt seems to have difficulty finding the words to describe things at this time. Dr Pickard is aware of increased confusion and increased drowsiness.
[2020-05-31 20:00] VITALS: BP 123/66; PULSE 63; RESP 16; TEMP 37.3; O2SAT 99
[2020-05-31] MEDS: ondansetron 2 mg/ML SDV 2 mL 4 MG IVP (20:50)
[2020-06-01] VITALS: BP 114/66; PULSE 70; RESP 16; TEMP 37.1; O2SAT 99
[2020-06-01] MEDS: sodium chlor 0.9% + KCl 20 mEq 20 MEQ/1,000 ML BAG 125 MEQ IV (00:02)
[2020-06-01 04:00] VITALS: BP 126/69; PULSE 57; RESP 20; TEMP 37.2; O2SAT 100
--- NOTE | 2020-06-01 07:27 | P.DS_ITS ---
Discharge Providers Date of Admission: 05/30/20 01:30 Date of Discharge: June 01, 2020 Attending Provider at Admission: Socorro Azul MD Attending Provider at Discharge: Jluis Pickard MD Primary Care Provider: Jluis Pickard MD Diagnoses at Discharge Discharge Diagnosis (1) C. 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 She had what family thought was a seizure at home. She is also been having diarrhea which was positive for C. difficile. Patient is receiving oral vancomycin. She also is receiving Keppra and seems to be doing better. On the day of discharge patient was much more oriented and alert. She knew where she was and what the year was. She is going to be discharged home with family with home health for the next several days and transition to hospice. Physical Exam Urinary Catheter Management^: Camp[place]: Cath Placed During This Visit: yes Reason for Continuing Indwelling Catheter: Hospice/Comfort/Palliative Care Urinary Catheter Date of Insertion: 05/29/20 Urinary Catheter Time of Insertion: 21:00 Discharge Data Data Completed and Pending: Completed Studies During Hospitalization Category Date Time Status CT abdomen pelvis w con* 84023 Urge nt Cat Scan 05/29/20 20:[address] head wo con* 7 0450 Urgent Cat Scan 05/29/20 19:33 Completed XR chest 1V horacio ble [id number] Urgent Exams 05/29/20 19:33 Completed Pending at discharge Category Date Time Status Clostridioides Di fficile PCR Routin e Lab 05/29/20 21:00 Received Vitals: Last Vital Signs Temp 99.0 F 06/01/20 04:00 Pulse 57 L 06/01/20 04:00 Resp 20 H 06/01/20 04:00 BP 126/69 06/01/20 04:00 Pulse Ox 100 06/01/20 04:00 Discharge Plan Discharge Patient Disposition: Home, Self-Care Condition: Stable Prescriptions: New vancomycin 1,000 mg Recon Soln 250 mg PO QID Qty: 28 RF: 0 levetiracetam 500 mg Tablet 1,000 mg PO BID Qty: 60 RF: 2 Continued citalopram [Celexa] 20 mg tablet 20 mg PO DAILY RF: 0 levothyroxine 50 mcg capsule 50 mcg PO DAILY RF: 0 L. acidophilus-dig enz cmb 5 5-250 mg capsule PO DAILY RF: 0 tramadol 50 mg tablet 50 mg PO QID RF: 0 multivitamin [One-A-Day Essential] Tablet 1 tab PO DAILY RF: 0 gabapentin 300 mg capsule 600 mg PO DAILY RF: 0 ferrous sulfate [Feosol] 325 mg (65 mg iron) tablet 325 mg PO DAILY RF: 0 ascorbic acid (vitamin C) 125 mg tablet,chewable 500 mg PO DAILY RF: 0 calcium-vitamin D3-vitamin K 500-500-40 mg-unit-mcg tablet,chewable 1 tab PO TID RF: 0 lorazepam 0.5 mg tablet 0.5 mg PO .At Bedtime RF: 0 Discontinued pravastatin 10 mg tablet 10 mg PO DAILY RF: 0 omega-3 fatty acids 500 mg capsule 500 mg PO DAILY RF: 0 Discharge Orders: Discharge Order (Routine); Ordered 06/01/20 Ordered By: Jluis Pickard Referrals: [facility] ([facility] [Outside] Discharge Diet: Usual diet Discharge Activity: Resume usual activity Activity Restrictions/Additional Instructions: -Discharge home with home health nursing care -Resume all of your home medications the same -To new medications of vancomycin 4 times a day for 7 days for the diarrhea. Keppra twice a day for seizures -Continue radiation treatment per your radiation oncologist. -Please call if any worsening symptoms -Follow-up with Dr. Pickard only if needed Discharge Attestations Time Spent in Discharge Care*: greater than 30 min Quality Metrics Clinical Quality Measures During this hospital stay, did patient experience: None Coding Level of Care Code Acute Medical Laboratory Scientist for Chg Fwd Diagnoses C. difficile colitis A04.72 Metastatic breast cancer C50.919 Seizures R56.9
[2020-06-01 07:28] VITALS: BP 118/62; PULSE 56; RESP 22; TEMP 36.9; O2SAT 100
[2020-06-01 07:40] VITALS: BP 118/62; PULSE 56; RESP 22; TEMP 36.9; O2SAT 100
[2020-06-01] MEDS: dexamethasone 4 mg/mL INJ IVP (08:56)
[2020-06-01] MEDS: levETIRAcetam 500 mg Tablet 1000 MG PO (08:56)
[2020-06-01] MEDS: lactobacillus 1 Tablet 4 TAB PO (08:59)
--- NOTE | 2020-06-01 09:00 | PC.NURSE ---
Campo Catheter removed at 0900 with catheter intact. Patient tolerated well.
[2020-06-01 10:51] VITALS: BP 118/62; PULSE 56; RESP 22; TEMP 36.9; O2SAT 100
--- NOTE | 2020-06-01 10:52 | PC.NURSE ---
Reviewed discharge instructions with patient. Patient verbalized understanding of follow up appointments and to continue to take the antibiotics that are at the pharmacy. Patient verbalized understanding of Home Health follow up that her picked. IV removed intact.
--- NOTE | 2020-06-01 11:01 | PC.NURSE ---
poke with patient's about her prescriptions that are at the pharmacy. Jerry verbalized understanding.
== END 2020-06-01 10:50 | disposition home or self-care (01) | DRG 372 ==
LOC: ER 20:19 → MEDSURG 05-30 01:55
PROVIDERS: Emergency Medicine; Admitting Provider Hospitalist; PCP Family Medicine; Visit Provider Family Medicine
DX: A04.72 Enterocolitis due to Clostridium difficile, not specified as recurrent (principal); C79.31 Secondary malignant neoplasm of brain; N13.30 Unspecified hydronephrosis; C50.919 Malignant neoplasm of unspecified site of unspecified female breast; R56.9 Unspecified convulsions; Z79.899 Other long term (current) drug therapy; F41.8 Other specified anxiety disorders; E78.5 Hyperlipidemia, unspecified; E03.9 Hypothyroidism, unspecified
CPT/HCPCS: 12345; 36415; 51702; 70450; 71045; 74177; 80053; 80307; 81001; 81003; 82550; 83605; 83735; 84100; 84484; 85025; 86140; 87493; 93005; 96375; 99284; J0744; J1100; J2405; J3370; J7030; Q9967; S0030

== ENCOUNTER 2020-06-06 06:50 | Outpatient (RCR) | payer BC, SELFPAY ==
--- NOTE | 2020-05-23 | CT_ITS ---
Radiation Therapy Planning CT images; total exam DLP: 700.40 mGy-cm MTDD
--- NOTE | 2020-05-24 10:29 | N.ONRAD NP_ITS ---
Radiation Oncology New Patient Visit Patient: Silva Aj MR#: [id number] : 1955 Age: 64 Sex: Female Dictated by: Dr. Jeff Mayen Date of Service: 05/23/2020 Referring Physician(s) : Dr. 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 Radiotherapy to date: Summary > No prior radiation therapy. Chief Complaint / History of Present Illness: The patient is a 64-year-old female with a past medical history significant for Stage IIIC (pT1c pN3 (10/06 LNs) M0 grade 1 infiltrating ductal carcinoma of the right breast which was treated with lumpectomy, followed by 6 cycles of A/C chemotherapy, adjuvant radiation therapy (completed 2000), and adjuvant endocrine therapy (discontinued March 2009). Unfortunately, on 04/28/2020 she was admitted to the hospital with acute encephalopathy and presenting symptoms of personality changes, confusion, and memory changes. CT angiogram of the head at that time revealed a 2.4 cm lytic clival mass and radiographic findings consistent with diffuse osseous calvarial metastasis. She was transferred to the [facility] and a subsequent lumbar puncture (04/29/2020) showed positive CSF cytology for metastatic carcinoma, AE1/AE3 positive. MRI of the brain (05/01/2020) revealed a 1.9 cm left clival mass extending to the level of the pituitary gland coupled with multiple small enhancing lesions within the calvarium. PET/CT on 05/02/2020 showed innumerable sclerotic metastatic lesions throughout the axial and visualized proximal appendicular skeleton. The most intense focus was in the L3 vertebral body. There were no other areas of suspicious FDG uptake. On 05/04/2020 she underwent needle biopsy of the L3 vertebral body. Pathology was showed metastatic carcinoma consistent with breast primary, ER negative at < 1% and WV negative. On 05/05/2020 she underwent transsphenoidal resection of the clival mass. Pathology again showed metastatic carcinoma consistent with breast primary, ER negative < 1% and WV negative. HER-2/iris analysis was reportedly sent out, but with results pending. She had successful recovery following the surgery, and she was discharged home on 05/12/2020. MRI of the head and C spine (05/19/20) demonstrates leptomeningeal enhancement of the skull base, 7-8Th cranial nerves, diffuse involvement along the cervical cord & cervicomedullary junction & gareth, and a small amount in the cerebellar folia. 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 as well as extensive bony metastasis in the cervical spine, thoracic spine, posterior elements, skull base, clivus. She was then seen by Dr Galeana who initiated Dexamethasone 4 mg BID (started ). In consultation today, the patient reports frequent headaches uncontrolled with Tramadol, occasional nausea/vomiting, and episodic loss of peripheral left lateral vision. She reports no specific bone pain. Current Medications: Ativan, celeXA, decadron, diclofenac Sodium, diclofenac Sodium, fish Oil, flonase, gabapentin, levothyroxine Sodium, tH Arthritis Pain Relief, traMADol HCl, vitamin C. Allergies: Penicillin V Potassium, Atorvastatin Calcium, naproxen and sulfa. Medical History: - Anxiety/depression, - breast cancer, - degenerative arthritis, - history of iron deficiency anemia, - hyperlipidemia, - hypothyroidism, - osteoporosis. No history of collagen vascular disease. No previous radiation therapy. Surgical History: Biopsy of L3 vertebral body on 05/04/2020, d&C in 1969, excision benign breast lesion in 1989, hysterectomy with bilateral salpingo-oophorectomy in 2010, right breast biopsy in 2011, right breast lumpectomy with axillary lymph node sampling in 02/2001, transsphenoidal resection of clival mass on 05/05/2020 and tubal ligation in 1992. Family History: Father is having experienced hypertension. Mother is alive having experienced hypothyroidism and high cholesterol. Sister is having experienced high cholesterol. Maternal Grandmother is having experienced unknown malignancy ? breast cancer (cause of ). Her father had coronary artery disease. He in a motor vehicle accident at age 85. Mother in her sleep, also at age 85. A sister with suspected heart disease at age 65. Social History: Last screened on 05/23/2020 - Never smoked. Last screened on 05/23/2020 - Never drank. Current Complaints / Review of Systems: Constitutional - Complains of severe fatigue. Complains of change in weight has lost about 30 pounds in the past 3 weeks.. Denies lack of appetite, fever, night sweats and rigors / chills. Eyes - Complains of blurred vision off and on with loss of peripheral vision in the left eye.. Denies double vision. ENMT - Complains of mouth dryness occasionally. Denies dysphagia, ear pain, stomatitis, altered taste and tinnitus. Neck - Complains of neck pain that radiates down the shoulders with headaches. Denies decreased range of motion. Integumentary - Denies rash. Breasts - Denies pain. Cardiovascular - Denies arrhythmias, chest pain and edema. Respiratory - Denies cough, dyspnea, hemoptysis and wheezing. Gastrointestinal - Complains of occasional constipation. Complains of vomiting. Denies abdominal pain, diarrhea and heartburn / dyspepsia. Genitourinary (F) - Complains of nocturia gets up about 1 time per night and vaginal discharge / bleeding which happened about 2 weeks ago and lasted 1 day. Denies dysuria, frequency, hematuria, incontinence and urgency. Musculoskeletal - Complains of generalized muscle weakness. Denies bone pain and joint pain. Neurologic - Complains of abnormal gait and post headache is worse. Complains of headaches occurring intermittently throughout the day and can happen with any slight activity. Headache pain radiates from the back of the head and down the neck into her shoulders. There will be loss of peripheral vision in the left eye and will vomit. Denies disorientation, insomnia and seizure. Endocrine - Complains of thyroid disease. Denies diabetes. Hematologic/Lymphatic - Denies tender or enlarged lymph nodes.. Vital Signs: Performed on 05/23/2020 9:10 AM BMI - 20.822 kg/m2, Height - 61.00 in, Weight - 110.2 lbs, Temperature - 97.8 f, Pulse - 58, Respiration - 18, O2 Sat - 99 %, Pain - 0 and BP - 108/ 65 mm(hg). Physical Exam: Gen: No acute distress HEENT: Normocephalic, External ocular movements intact, Pupils equal round and reactive, Oral cavity examination reveals no evidence of mucosal irregularity. Lymphatics: No cervical lymphadenopathy. Cardiac: RRR, normal S1/S2 Lungs: Clear to auscultation bilaterally. Neuro: CN II-XII grossly intact, no pronator drift, finger to nose normal, Rhomberg negative, the patient is not able to walk in tandem gait. Psych: Affect normal Extremities: No obvious lower extremity swelling. Skin: Cursory view of the skin reveals no obvious lesions concerning for cutaneous malignancy. Performance Status: 3 - Capable of only limited self-care, confined to bed or chair more than 50% of waking hours. 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 Lab: Test performed on 05/19/2020 9:48 AM WBC - 11.1 10 3/ul (high), RBC - 3.53 10 6/ul (low), HGB - 10.5 g/dl (low), HCT - 34.2 % (low), Platelet Count - 520 10 3/cmm (high), Neutrophils - 8.6 10 3/ul (high) and Glucose - 133 mg/dl (high). Imaging: Personally reviewed. See HPI Impression: The patient is a 64 year old female who was originally diagnosed with T1cN3 M0 ER/WV+, her-2/iris negative grade 1 infiltrating ductal carcinoma of the right breast. She now has biopsy proven ER negative metastatic carcinoma consistent with a breast primary. Pathology was confirmed via clival mass excision, CSF cytology, and L3 biopsy. MRI of the head and C spine (05/19/20) demonstrates leptomeningeal enhancement of the skull base, 7-8Th cranial nerves, and diffuse involvement along the cervical cord & cervicomedullary junction & gareth. 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 We had a candid discussion regarding prognosis. Specifically, we discussed a 5-7 month average life expectancies of people with breast cancer and leptomeningeal disease. However, in her case, given the diffuse nature of her disease, her life expectancy could be less than 5-7 months. We discussed hospice care and proceeding with palliative radiation therapy. We discussed side effects inclusive of alopecia, short term memory loss, and a reduction in cognitive skills over time. The patient elected to proceed with treatment. She is being treated with Dexamethasone 4mg BID (initiated ~05/19/20), and I wrote for ER morphine 15 mg BID #60 capsules to manage her painful headaches. I also wrote for Zofran 8 MG Q8 hrs prn nausea and recommended Docusate tablets for her bowel regimen as needed. I offered whole brain radiation therapy (30 Gy/10 fractions) such that the cribiform plate, clivus, whole brain, and the cervical cord will be covered down to C3/C4. Plan: Begin XRT to whole brain on 05/24/2020. Signed by: 05/24/2020 10:28:34 AM <<Signature on File>> Time spent with patient: CPT Code: CPT Code:
--- NOTE | 2020-05-25 15:27 | ONCRAD TMN_ITS ---
Radiation Oncology Weekly Treatment Management Patient: Silva Aj MR#: [id number] : 1955 Age: 64 Sex: Female Dictated by: Dr. Jeff Mayen Date of Service: 05/25/2020 Referring Physician(s) : Kendrick Simpson M.D. 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 ID: [id number], Energy: 15X/6X, Dose/Fx (cGy): 300, #Fx: 2 / 10, Dose Correction (cGy): 0, Total Dose (cGy): 600, Start Date: 05/24/2020, Elapsed Days: 1 Chief Complaint/History of Present Illness: Breast cancer. This is a 64 year-old woman with grade 1 infiltrating ductal carcinoma of the right breast, originally staged as IIIC (T1c, pN3, M0), ER/IL positive and HER-2/iris negative. She now has progressed to stage IV (M1), with multiple sites of bone involvement and suspected leptomengingeal involvment. She had presented in 2000 with a right breast lump in the setting of longstanding fibrocystic disease. Her mammogram was suspicious. On 02/19/2001 she underwent lumpectomy with axillary lymph node dissection. Pathology showed grade 1 infiltrating ductal carcinoma measuring 1.1 x 1.0 cm. There was involvement in 11 of 19 axillary lymph nodes. The tumor was ER/IL positive and HER-2/iris negative. She was given adjuvant chemotherapy with 6 cycles of Adriamycin/cyclophosphamide, which she completed in June of 2001. She was then given radiation to the right breast and she received 5 years of adjuvant tamoxifen. She continued extended hormonal therapy with Femara, beginning in May of 2006. It was stopped in May 2008 because of multiple side effects, most significantly joint pain. She restarted treatment with Aromasin in October of 2008, but she also tolerated it poorly and stopped treatment as of March of 2009. She was then followed on observation/expectant management. I had last seen her in November 2012. At that time there was no evidence of recurrence of her breast cancer. On 04/28/2020 she was admitted to the hospital with acute encephalopathy. She had been experiencing personality and memory changes for several weeks, and then she abruptly became overtly confused, prompting her to be taken to the emergency room. She initially began empiric antibiotic coverage for suspected meningitis, but on a CT angiogram of the head she was noted to have a destructive lytic skull based mass position predominantly to the left of the midline at the upper level of the clivus and adjacent sphenoid bone. It measured 1.7 x 1.7 x 2.4 cm. There was overall abnormal heterogeneous appearance of bone density throughout the calvarium with small intermixed areas of lucency and possible small areas of sclerosis, suspicious for diffuse osseous neoplastic process. She was transferred to the [facility] for further management. Her lumbar puncture on 04/29/2020 showed positive CSF cytology for metastatic carcinoma, AE1/AE3 positive. Her brain MRI on 05/01/2020 showed enhancing 1.9 cm left clival mass extending to the level of the pituitary gland. Multiple small enhancing lesions within the calvarium appeared consistent with metastases. There was no parenchymal enhancing lesion. Her PET/CT on 05/02/2020 showed innumerable sclerotic metastatic lesions throughout the axial and visualized proximal appendicular skeleton. The most intense focus was in the L3 vertebral body. There were no other areas of suspicious FDG uptake. On 05/04/2020 she underwent needle biopsy of the L3 vertebral body. Pathology was showed metastatic carcinoma consistent with breast primary, ER negative at < 1% and IL negative. On 05/05/2020 she underwent transsphenoidal resection of the clival mass. Pathology again showed metastatic carcinoma consistent with breast primary, again with ER negative < 1% and IL negative. HER-2/iris analysis was reportedly sent out, but with results pending. She had successful recovery following the surgery, and she was discharged home on 05/12/2020. She is seen now for further management of the breast cancer. She has had quite a remarkable improvement compared to her presurgical condition. She now has returned to baseline mental status, and she is ambulatory. She complains that her legs are weak and she does not get up and around very much. Her ECOG score is 3. Her appetite is better than it was. She has had some weight loss. She does not have fever, night sweats, or hot flashes. She has been having headaches, particularly when she leans forward. She also has been aware of visual changes with intermittent dark places in her visual field. She has noticed that her right hand gets numb and tingly. She has been having pain in the back of her head and in her neck. It radiates into the shoulders. She also has been having some pain in her left arm. She was having some difficulty breathing due to her nose being stopped up, but that is getting better now. She has not had cough, and she does not complain of chest pain. She had been having loose stools and bowel incontinence, but her bowel function now is getting back to normal. She has no other GI or complaints. She has had anxiety/depression, but that is being managed adequately with medication. Current Medications: Ativan, celeXA, decadron, diclofenac Sodium, diclofenac Sodium, fish Oil, flonase, gabapentin, levothyroxine Sodium, morphine Sulfate ER, ondansetron HCl, tH Arthritis Pain Relief, traMADol HCl, vitamin C. Allergies: Penicillin V Potassium, Atorvastatin Calcium, naproxen and sulfa. Current Complaints/Review of Systems: Vital Signs: Performed on 05/25/2020 3:07 PM BMI - 20.936 kg/m2, Height - 61.00 in, Weight - 110.8 lbs, Temperature - 98.4 f, Pulse - 56, Respiration - 18, O2 Sat - 97 %, Pain - 0 and BP - 100/ 58 mm(hg)(/low). Physical Exam: Appears stable, no skin erythema or desquamation. Performance Status: 3 - Capable of only limited self-care, confined to bed or chair more than 50% of waking hours. (ECOG) Lab: None pending in Radiation Oncology. Test performed on 05/19/2020 9:48 AM WBC - 11.1 10 3/ul (high), RBC - 3.53 10 6/ul (low), HGB - 10.5 g/dl (low), HCT - 34.2 % (low), Platelet Count - 520 10 3/cmm (high), Neutrophils - 8.6 10 3/ul (high) and Glucose - 133 mg/dl (high). Imaging: No new diagnostic imaging was performed since the last weekly treatment visit. All radiation therapy related imaging (including but not limited to kV, MV, and CBCT generated images) was reviewed. Appropriate changes, if any, were made to assure accurate target localization. Impression/Plan: Tolerating treatment well with expected side effects. Continue treatment as planned. CPT: 17659 Signed by: Dr. Jeff Mayen>05/25/2020 3:26:01 PM <<Signature on File>>
--- NOTE | 2020-06-01 18:19 | ONCRAD TMN_ITS ---
Radiation Oncology Weekly Treatment Management Patient: Silva Aj MR#: [id number] : 1955> Age: 64> Sex: Female Dictated by: Dr. Jeff Mayen Date of Service: 06/01/2020 Referring Physician(s) : Kendrick Simpson M.D. 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 ID: [id number], Energy: 15X/6X, Dose/Fx (cGy): 300, #Fx: , Dose Correction (cGy): 0, Total Dose (cGy): 2,100, Start Date: 05/24/2020, Elapsed Days: 8 Interim history: The patient was recently discharged from the hospital with a diagnosis of seizures and C. difficile. Keppra 1000 mg twice daily has been added to her regimen, as well as vancomycin 250 mg 4 times daily. The patient reports that her headaches are improving and she reports that she no longer complains of loss of peripheral vision. She reports moderate fatigue, and no mouth sores. Current Medications: Ativan, celeXA, decadron, diclofenac Sodium, diclofenac Sodium, fish Oil, flonase, gabapentin, levothyroxine Sodium, morphine Sulfate ER, ondansetron HCl, Arthritis Pain Relief, traMADol HCl, vitamin C. Allergies: Penicillin V Potassium, Atorvastatin Calcium, naproxen and sulfa. Current Complaints/Review of Systems: Constitutional - Complains of lack of appetite. Complains of moderate fatigue. Denies fever, night sweats and change in weight. Eyes - Denies blurred vision and double vision. ENMT - Denies ear pain, stomatitis and altered taste. Gastrointestinal - Complains of nausea. Denies vomiting. Neurologic - Complains of disorientation. Complains of headaches occurring intermittently throughout the day. Denies dizziness. Vital Signs: Performed on 06/01/2020 2:59 PM BMI - 20.973 kg/m2, Height - 61.00 in, Weight - 111.0 lbs, Temperature - 98.5 f, Pulse - 64, Respiration - 16, O2 Sat - 97 %, Pain - 0 and BP - 93/ 51 mm(hg)(/low). Physical Exam: Appears stable, no skin erythema or desquamation. Oral cavity examination reveals no evidence of oral thrush. Performance Status: 3 - Capable of only limited self-care, confined to bed or chair more than 50% of waking hours. (ECOG) Lab: None pending in Radiation Oncology. Test performed on 05/19/2020 9:48 AM WBC - 11.1 10 3/ul (high), RBC - 3.53 10 6/ul (low), HGB - 10.5 g/dl (low), HCT - 34.2 % (low), Platelet Count - 520 10 3/cmm (high), Neutrophils - 8.6 10 3/ul (high) and Glucose - 133 mg/dl (high). Imaging: No new diagnostic imaging was performed since the last weekly treatment visit. All radiation therapy related imaging (including but not limited to kV, MV, and CBCT generated images) was reviewed. Appropriate changes, if any, were made to assure accurate target localization. Impression/Plan: Tolerating treatment well with expected side effects. Continue treatment as planned. CPT: 57052 Signed by: Dr. Jeff Mayen>06/01/2020 6:18:43 PM <<Signature on File>>
== END 2020-06-17 23:59 | disposition home or self-care (01) ==
LOC: ONCMED 06:50
PROVIDERS: PCP Family Medicine; Visit Provider Radiology Radiation Oncology
DX: Z51.0 Encounter for antineoplastic radiation therapy (principal); C79.32 Secondary malignant neoplasm of cerebral meninges; C50.411 Malignant neoplasm of upper-outer quadrant of right female breast; C79.51 Secondary malignant neoplasm of bone; A04.72 Enterocolitis due to Clostridium difficile, not specified as recurrent
CPT/HCPCS: 77290; 77295; 77300; 77334; 77336; 77387; 77412; 99215